=== PATIENT | male | born 1970 | race Caucasian/White ===

== ENCOUNTER → 2021-09-19 14:23 | Outpatient (BNVA) | payer OTHER, SELFPAY | PROVIDERS: PCP Internal Medicine Medical Oncology; Visit Provider Physician Assistant | DX: M65.331 Trigger finger, right middle finger (principal); M77.12 Lateral epicondylitis, left elbow | CPT/HCPCS: 20551; J1020 ==

== ENCOUNTER 2021-10-28 11:01 | Day surgery (SDC) | payer OTHER, SELFPAY ==
--- NOTE | 2021-10-28 11:37 | W.PM.OPN ---
Operative Note Operative Note Date of Service: 10/28/21 Narrative: Operative Note Preop diagnosis: 1. right middle finger Trigger finger Postop diagnosis: 1. right middle finger Trigger finger Procedure: 1. right middle finger A1 ariela release Surgeon: Abigail Lerma MD Anesthesia: local block using 1% lidocaine with epinephrine Findings: No locking or catching after A1 ariela release EBL: Less than 5 mL Tourniquet time: None Specimens: None Complications: None Disposition: Brought to recovery room in stable condition Plan: Follow-up for 10-14 days for wound check and suture removal Indications: The patient is 51 years old, with a right middle finger trigger finger that has been unresponsive to nonoperative management. The risks and benefits of operative treatment including but not limited to risk of damage to blood vessels, nerves, tendons, infection, persistent pain, persistent symptoms, recurrence or possible need for additional surgery were discussed with the patient and the patient wishes to proceed with surgery. Procedure: Once consent was obtained a local block was performed in the preop area using a combination of 1% lidocaine with epinephrine. The patient was then brought back to the operating suite and placed on the operative table in supine position. A tourniquet was applied to the proximal aspect of the right upper extremity and the limb was prepped and draped in a standard surgical fashion. Once assured that we had a good block, a 1.5 cm oblique incision was made centered over the A1 ariela of the right middle finger . The incision was made through the skin to the subcutaneous tissues using a #15 blade. Careful dissection was made down to the level of the A1 ariela using tenotomy scissors, with care being taken to protect the nearby neurovascular structures. A longitudinal incision was made in the A1 ariela 1st using a #15 blade, then using tenotomy scissors under direct visualization. The A1 ariela was noted to be thickened. Following our A1 ariela release, we no longer saw any locking or catching of the digit with flexion and extension. Once satisfied with our A1 ariela release the wound was copiously irrigated with normal saline and hemostasis was obtained with a brief period of local pressure. The skin edges were reapproximated with some 5.0 nylon suture material and a sterile dressing was applied. The patient appears to have tolerated the procedure well and with no complications. All digits were well vascularized at the conclusion of the case.
[2021-10-28 11:41] VITALS: BP 151/94; PULSE 67; RESP 16; TEMP 36.4; O2SAT 96; BMI 29.2
--- NOTE | 2021-10-28 12:54 | MHC.SHP ---
Pre-Procedural Eval Section A Date of Service: 10/28/21 The patient is an INPATIENT: No Changes since office visit: No Cold of Flu in the past 2 weeks, No New Medical Problems, No Changes in Medication and No Patient answered all questions The History & Physical has been completed within 30 days and I have reviewed it.: Yes Section B Chief Complaint: trigger finger release Allergies: Allergies Allergy/AdvReac Type Severity Reaction Status Date / Time No Known Allergies Allergy Verified 09/19/21 14:35 Plan I have reviewed the history and physical and performed a pertinent physical examination on my patient. No changes have occurred unless specified.
[2021-10-28 13:17] VITALS: BP 142/76; PULSE 64; RESP 17; TEMP 36.9; O2SAT 97
== END 2021-10-28 13:27 | disposition home or self-care (01) ==
PROVIDERS: Visit Provider Orthopaedic Surgery
PROC: (CPT 26055; principal; 2021-10-28 12:30)
DX: M65.331 Trigger finger, right middle finger (principal); M77.12 Lateral epicondylitis, left elbow; I10 Essential (primary) hypertension; Z79.899 Other long term (current) drug therapy
CPT/HCPCS: 26055

== ENCOUNTER 2022-04-17 09:38 | Outpatient (REF) | payer OTHER, SELFPAY ==
[2022-04-17 09:59] LABS: MANUAL DIFF FLAG NO
[2022-04-17 10:48] LABS: Basophils Percent Auto 0.5 % (0-2); Eosinophils Absolute Auto 0.1 X10*3/uL (0.0-0.4); Eosinophils Percent Auto 1.3 % (0-4); Hematocrit 45.1 % (42.0-52.0); Hemoglobin 14.7 g/dl (14.0-18.0); Imm Gran Abs Auto 0.01 X10*3/uL (0.00-0.03); Imm Gran Pct Auto 0.2 % (0.0-0.4); Lymphocytes Absolute Auto 2.1 X10*3/uL (1.2-4.9); Lymphocytes Percent Auto 34.8 % (20-40); Mean Corpuscular HGB Conc 32.6 g/dl (31.0-36.0); Mean Corpuscular Hemoglobin 28.3 pg (27.0-33.0); Mean Corpuscular Volume 86.9 fL (80.0-98.0); Mean Platelet Volume 9.5 fL (9.4-12.4); Monocytes Absolute Auto 0.6 X10*3/uL (0.1-1.2); Monocytes Percent Auto 10.1 % (2-11); Neutrophils Absolute Auto 3.3 x10*3/uL (2.0-8.3); Neutrophils Percent Auto 53.1 % (45-73); Platelet Count 279 X10*3/uL (160-400); Red Blood Count 5.19 X10*6/uL (4.60-5.80); Red Cell Distribution Width 12.8 % (11.0-16.0); White Blood Count 6.2 X10*3/uL (4.8-10.8)
[2022-04-17 11:31] LABS: Alanine Aminotransferase 17 U/L (0-40); Albumin Level 4.6 g/dL (3.5-5.0); Alkaline Phosphatase 60 U/L (39-117); Anion Gap 12 (12-20); Aspartate Amino Transferase 21 U/L (5-37); Bilirubin Total 1.1 mg/dL (0.0-1.0); Blood Urea Nitrogen 17 mg/dL (9-16); Calcium 9.4 mg/dL (8.4-10.2); Carbon Dioxide 26 mmol/L (22-29); Chloride 103 mmol/L (96-108); Cholesterol 293 mg/dL; Estimated Glomerular Filt Rate > 60; Glucose Random 94 mg/dL (60-115); HDL Cholesterol 54 mg/dL; LDL Cholesterol Calculated 224 mg/dl; Sodium 136 mmol/L (135-145); Total Protein 7.4 g/dL (6.5-8.0); Triglycerides 76 mg/dL
[2022-04-17 11:44] LABS: Prostate Specific Antigen 0.55 ng/mL (<0.05-4.0)
[2022-04-17 15:03] LABS: Adenovirus F 40/41 Not Detected (Not Detect.); Astrovirus Not Detected (Not Detect.); Campylobacter Not Detected (Not Detect.); Cryptosporidium Not Detected (Not Detect.); Cyclospora cayetanensis Not Detected (Not Detect.); E. coli EAEC Not Detected (Not Detect.); E. coli EPEC Not Detected (Not Detect.); E. coli ETEC Not Detected (Not Detect.); E. coli STEC Not Detected (Not Detect.); Entamoeba histolytica Not Detected (Not Detect.); Giardia lamblia Not Detected (Not Detect.); Norovirus GI/GII Not Detected (Not Detect.); Plesiomonas shigelloides Not Detected (Not Detect.); Rotavirus A Not Detected (Not Detect.); Salmonella Not Detected (Not Detect.); Sapovirus Not Detected (Not Detect.); Shigella sp./EIEC Not Detected (Not Detect.); Vibrio Not Detected (Not Detect.); Vibrio Cholerae Not Detected (Not Detect.); Yersinia enterocolitica Not Detected (Not Detect.)
== END 2022-04-17 09:39 | disposition home or self-care (01) ==
LOC: HO.LAB 09:38
PROVIDERS: PCP Internal Medicine Medical Oncology; Visit Provider Internal Medicine Medical Oncology
DX: Z12.5 Encounter for screening for malignant neoplasm of prostate (principal); E66.9 Obesity, unspecified; N40.0 Benign prostatic hyperplasia without lower urinary tract symptoms; R19.7 Diarrhea, unspecified
CPT/HCPCS: 36415; 80053; 80061; 84153; 85025; 87507

== ENCOUNTER 2022-04-24 12:04 | Outpatient (REF) | payer OTHER, SELFPAY ==
[2022-04-24 13:37] LABS: C Reactive Protein 0.22 mg/dL (< or = 0.50)
[2022-04-24 14:05] LABS: T4 Thyroxine 6.2 ug/dL (4.5-12.0)
[2022-04-24 14:08] LABS: Erythrocyte Sedimentation Rate 2 MM/HR (0-15)
[2022-04-25 13:50] LABS: CDiff Gene PCR NEGATIVE (Negative)
[2022-04-25 14:00] LABS: Leukocytes Stool Qualitative NEGATIVE (NEGATIVE)
[2022-04-28 14:32] LABS: Immunoglobulin A 253 mg/dL (47-310)
[2022-04-29 08:16] LABS: Gliadin Deamidated IgA Ab 1.1 U/mL; Gliadin Deamidated IgG Ab <1.0 U/mL
[2022-04-30 13:36] LABS: Transglutaminase Ab IgG <1.0 U/mL; Transglutaminase IgA <1.0 U/mL
[2022-05-06 16:27] LABS: Endomysial IgA Antibody Negative (Negative)
== END 2022-04-24 12:05 | disposition home or self-care (01) ==
LOC: HO.LAB 12:04
PROVIDERS: PCP Internal Medicine Medical Oncology; Visit Provider Internal Medicine
DX: R19.7 Diarrhea, unspecified (principal)
CPT/HCPCS: 36415; 82784; 84436; 84443; 85652; 86140; 86231; 86258; 86364; 87493; 89055

== ENCOUNTER 2022-05-05 12:28 | Day surgery (SDC) | payer OTHER, SELFPAY ==
[2022-05-05 12:35] VITALS: BMI 28.2
[2022-05-05 12:48] VITALS: BP 161/70; PULSE 66; RESP 16; TEMP 36.3; O2SAT 97
--- NOTE | 2022-05-05 13:46 | HO.ANESPROP2 ---
[facility] Active Problems Active Problems: All Active Problems (Updated 09/21/21 @ 18:54 by Joel Gamble PA-C) Trigger middle finger of right hand (Acute) Left lateral epicondylitis (Acute) Past Medical History Medical History HTN (hypertension) Family History Family history of problems with anesthesia: No Surgical History Surgical History (Updated 05/05/22 @ 12:38 by Caty Huang RN) History of colonoscopy History of vasectomy History of Problems with Anesthesia: No Social History Social History (Updated 09/19/21 @ 14:36 by SPRING Moffett) Patient Tobacco Use Status: Never used Tobacco Second Hand Smoke Exposure: No Use of substances other than those prescribed or required for medical reasons: Yes Substance Use Frequency: Occasionally Are you DNR?: No Advance Directives: No Advance Directives Information Provided: Yes Advance Directives on File: No Current occupational status: employed 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 Meds Allergies Allergy/AdvReac Type Severity Reaction Status Date / Time No Known Allergies Allergy Verified 09/19/21 14:35 Active Medications: Current Medications Sodium Biphosphate/Sodium Phosphate (Sodium Phosphate,[place]-Dibasic 133 Ml Enema) 133 ml AR ONCE PRN PRN Reason: Poor Colonoscopy Prep Results Home Medications Medication Instructions Recorded Confirmed Last Taken Type metoprolol tartrate 25 mg tablet 12.5 mg PO BID 09/19/21 Unknown History Exam Exam Date and Time: May 05, 2022 1346 Height,Weight and Vital Signs: Height 5 ft 6 in Weight 79.379 kg Last Vital Signs Temp 97.4 F 05/05/22 12:48 Pulse 66 05/05/22 12:48 Resp 16 05/05/22 12:48 BP 161/70 H 05/05/22 12:48 Pulse Ox 97 05/05/22 12:48 O2 Del Method 05/05/22 12:48 Airway Mallampati Class: I TM Dist: >3cm Neck ROM: Full Loose/Missing/Broken Teeth: No Heart: rrr Lungs: clear Assessment and Plan Final Anesthetic Review Family History of Problems with Anesthesia: No History of Problems with Anesthesia: No NPO: Yes ASA Class: II Final Preanesthetic Review: No Changes in Pt Med Stat, Meds/Allgs Chart Reviewed, Consent Obtained/Reviewed and Anes Risks/Benef Reviewed Patient Risk: Low Procedure Risk: Low Anesthetic Plan Anesthetic Plan: MAC: Disposition: Standard PACU
[2022-05-05 14:55] VITALS: BP 106/68; PULSE 62; RESP 16; TEMP 36.2; O2SAT 98
--- NOTE | 2022-05-05 15:02 | PM.OP ---
Brief Operative Note Date of Service: 05/05/22 Pre-op diagnosis: Diarrhea, change in bowel habits Post-op diagnosis: other (R/O Microscopic colitis) Procedure: Colonoscopy to the cecum and TI with biopsies Surgeon: Brian Beck Anesthesia: MAC Was an Earth Science Professor used for this Procedure?: No Estimated blood loss (mL): 2.0 Pathology: other (A. Terminal ileum B. Ascending colon C. Descending colon) Condition: stable Disposition: PACU
[2022-05-05 15:10] VITALS: BP 139/74; PULSE 60; RESP 16; TEMP 36.4; O2SAT 99
--- NOTE | 2022-05-06 00:42 | OP_ITS ---
SURGEON: Brian Beck MD INDICATIONS: The patient presents for evaluation of change in bowel habits with associated diarrhea. Full consent has been obtained from him for this, including risks of bleeding and perforation. PREOPERATIVE DIAGNOSIS: Change in bowel habits and diarrhea. POSTOPERATIVE DIAGNOSIS: PROCEDURE PERFORMED: Colonoscopy to the cecum and terminal ileum with biopsies. ESTIMATED BLOOD LOSS: COMPLICATIONS: ANESTHESIA: Monitored anesthesia care. ASSISTANTS: SPECIMENS: POSTOPERATIVE DIAGNOSES: Change in bowel habits and diarrhea, rule out microscopic colitis, mild diverticulosis, small internal hemorrhoids. DESCRIPTION OF PROCEDURE: The patient was placed in the left lateral decubitus position. The digital rectal exam revealed no abnormalities. The Lotaris video pediatric colonoscope was entered into the rectum and advanced easily to the cecum. Once in the cecum, I did identify a normal-appearing cecal pouch with appendiceal orifice and a normal-appearing ileocecal valve. The terminal ileum was cannulated for least 5 to 10 cm and appeared normal, without any sign of Crohn disease. Biopsies were obtained. The scope was withdrawn back in the colon. The entire cecum and ileocecal valve appeared normal. The scope was slowly withdrawn assessing all mucosal surfaces carefully. Preparation was excellent. I did not visualize any sign of colitis, polyps, nor angiodysplasia. There were some mild areas of edema throughout the colon but no oren evidence of colitis. Biopsies were obtained in the ascending and descending colon. There was a mild amount of sigmoid diverticulosis. In the rectum, the scope was retroflexed visualizing internal hemorrhoids, but no other pathology. The rectal mucosa appeared normal. Scope was straightened and withdrawn from the patient. He tolerated the procedure well and was returned to the recovery area in stable condition. IMPRESSION: 1. Rule out microscopic colitis. 2. Mild diverticulosis. 3. Small internal hemorrhoids. PLAN: The results of the biopsies will be checked. I have instructed him to use Imodium throughout the day as needed to see if that give him some relief in regard to the diarrhea. All recent stool specimens have been negative including C difficile. Laboratories including thyroid studies, sedimentation rate, C-reactive protein, and celiac disease laboratories have been negative as well. If the symptoms persist, then we may want to obtain a CT scan of the abdomen to assess the pancreas, although based on the history, I do not think this is anything such as pancreatic insufficiency. We may want to try him on other symptomatic treatment such as cholestyramine. He will be seen in followup in the office. This has been discussed with his . MD MONICA Green/VINCENT / [phone]
== END 2022-05-05 15:34 | disposition home or self-care (01) ==
PROVIDERS: PCP Internal Medicine Medical Oncology; Visit Provider Internal Medicine
PROC: 0DJD8ZZ Inspection of Lower Intestinal Tract, Via Natural or Artificial Opening Endoscopic (ICD-10-PCS; CPT 45378; principal; 2022-05-05 14:00)
DX: R19.4 Change in bowel habit (principal); R19.7 Diarrhea, unspecified; K52.832 Lymphocytic colitis; K57.30 Diverticulosis of large intestine without perforation or abscess without bleeding; K64.8 Other hemorrhoids; I10 Essential (primary) hypertension; Z98.52 Vasectomy status; Z79.899 Other long term (current) drug therapy
CPT/HCPCS: 45380; 88305

== ENCOUNTER 2022-06-23 06:20 | Outpatient (REF) | payer OTHER, SELFPAY ==
[2022-06-23 08:04] LABS: Cholesterol 222 mg/dL; HDL Cholesterol 57 mg/dL; LDL Cholesterol Calculated 138 mg/dl; Triglycerides 135 mg/dL
== END 2022-06-23 06:21 | disposition home or self-care (01) ==
LOC: HO.LAB 06:20
PROVIDERS: PCP Internal Medicine Medical Oncology; Visit Provider Internal Medicine Medical Oncology
DX: E66.3 Overweight (principal)
CPT/HCPCS: 36415; 80061

== ENCOUNTER 2025-01-30 07:23 | Outpatient (REF) | payer BC, SELFPAY ==
--- OUTSIDE RECORDS SUMMARY | 2025-01-30 07:27 | XMS_ITS | Patient Health Record ---
Author Organization [facility] Address [address] [place] [address] Care Team Providers Care Embedded Developer Name Role Phone Rich Barbosa MD Primary Care Provider Unavailab Rich Lord Unavailable [phone] Allergies No Known Allergies Reason For Referral Referring Provider First Name Rcih Referring Provider Last Name Familia Referring Provider Speciality Oncology Referred Organization [facility] Referred Provider Rich Beck Referred Address [address],[place], [place],[address],[place] Referred Provider Specialty Gastroentero logy General Notes Kenia Rosales 024 09:29:23 AM EDT > requested o blue referral from Dr. Barbosa's office for visit with Ebony Mercado on 08-09-2024 Referral Priority Routine Medications Medication SIG (Take, Route, Frequency, Duration) Notes Start Date End Date Status Vitamin C Gummie 120 MG as directed Orally Active Calcium + D 500-1000-40 MG-UNT-MCG as directed Orally Active Budesonide 3 MG TAKE 3 CAPSULES BY M OUTH EVERY DAY for 30 Not-Taking Metoprolol Succinate ER 50 MG 1 tablet Oral Once a day Act kelsie immodium 1 tab Oral for 14 days prn Active Budesonide 3 MG 3 capsules Orally On ce a day for 6 weeks and then check with MD regarding tapering instructions for 30 days prn 05/21/2023 Active Immunizations Vaccine Route Administration Date Status Comme nts Influenza Unknown 03/03/2019 Refused Influenza Unknown 07/31/2022 Refused Influenza Unknown 12/03/2022 Refused Social History Tobacco Use: Social History Observation Description Date Details (start date - stop date) Former Smoker NA - NA Tobacco Use/Smoking Question Answer Notes Patient is a former smoker How long has it been since you last smoked? > 10 years Alcohol Screen Question Answer Notes Did you have a drink contain ing alcohol in the past year? Yes How often did you have a dri nk containing alcohol in the past year? 2 to 3 times a week (3 points) How many drinks did you have on a typical day when you were drinking in the past year? 1 or 2 drinks (0 point) How often did you have 6 or more drinks on one occasion in the past year? Never (0 point) Points 3 Interpretation Negative Section Notes: Nonsmoker; 6 beers per week Nonsmoker; 6 beers per week Nonsmoker; 6 beers per week Nonsmoker; 6 beers per week Nonsmoker; 6 beers per week Nonsmoker; 6 beers per week Nonsmoker; 6 beers per week Problems Problem Type SNOMED Code ICD Code Onset Dates Problem Status W/U Status Risk Notes Problem Screening for malignant neoplasm of colon done (017220631864387) Encounter for screening for malignant neoplasm of colon (Z12.11) Active confirmed Problem Diarrhea (86778245) Diarrhea (R19.7) Active confirmed Problem History of polyp of colon (situation) (739974265) Personal history of colonic polyps (Z86.010) Active confirmed Problem Preprocedural examination done (417529852841261) Preprocedural examination (Z01.818) Active confirmed Problem Lymphocytic colitis (0335100047) Lymphocytic colitis (K52.89) Active confirmed Problem Diverticulosis of colon (694127186) Diverticulosis of colon (K57.30) Active confirmed Vital Signs Blood pressure diastolic 00 mm Hg 08/09/2024 Height 66 in 08/09/2024 Blood pressure systolic 00 mm Hg 08/09/2024 Weight 186 lbs 08/09/2024 BMI 30.02 kg/m2 08/09/2024 Encounters Encounter Location Date Provider Diagnosis [facility] [address] [place] [phone] 08/09/2024 Rich Beck Lymphocytic colitis K52.89 ; Encounter for screening for malignant neoplasm of colon Z12.11 and Personal history of colonic polyps Z86.010 [facility] [address] [place] [address] 06/27/2024 Rich Beck Assessments Encounter Date Diagnosis (ICD Code) Assessment Notes Treatment Notes Treatment Clinical Notes Section Notes 08/09/2024 Encounter for screening for malignant neoplasm of colon (ICD-10 - Z12.11) Overall, Rich appears quite well. His lymphocytic colitis has remained in clinical remission off the budesonide for at least 2 months now. As such, I don't think is worthwhile to start him on a low-dose of budesonide or a mesalamine agent at this time. As such, we will continue to observe things and hopefully his remain in remission off of the medication. We did review that we could try a mesalamine agent to try to keep things in remission but that would not be a guarantee anyway. As such, he is quite content to simply observe things rather than have to take a chronic medication. I will send him a prescription to be able to warehouse picker some budesonide to have handy in the event he does have a flareup. I advised him that at that point he will start 9 mg daily but he will need to call me right away to let me know that he is going back on the medication so I can instruct him as to how to taper it. However, if things otherwise remained well I will plan to see him in one year for a followup visit. We did review that he will be due for a followup colonoscopy for screening in 2026 In regard to his previous history of colon polyps. I did advise him to definitely call me prior to the next year's visit if he has any problems or questions I can be of assistance with. Rich was comfortable with this plan. Thank you again for allowing me to participate in Rich's care. I shall continue to keep you advised of his progress. 08/09/2024 Lymphocytic colitis (ICD-10 - K52.89) Overall, Rich appears quite well. His lymphocytic colitis has remained in clinical remission off the budesonide for at least 2 months now. As such, I don't think is worthwhile to start him on a low-dose of budesonide or a mesalamine agent at this time. As such, we will continue to observe things and hopefully his remain in remission off of the medication. We did review that we could try a mesalamine agent to try to keep things in remission but that would not be a guarantee anyway. As such, he is quite content to simply observe things rather than have to take a chronic medication. I will send him a prescription to be able to warehouse picker some budesonide to have handy in the event he does have a flareup. I advised him that at that point he will start 9 mg daily but he will need to call me right away to let me know that he is going back on the medication so I can instruct him as to how to taper it. However, if things otherwise remained well I will plan to see him in one year for a followup visit. We did review that he will be due for a followup colonoscopy for screening in 2026 In regard to his previous history of colon polyps. I did advise him to definitely call me prior to the next year's visit if he has any problems or questions I can be of assistance with. Rich was comfortable with this plan. Thank you again for allowing me to participate in Rich's care. I shall continue to keep you advised of his progress. 08/09/2024 Personal history of colonic polyps (ICD-10 - Z86.010) Overall, Rich appears quite well. His lymphocytic colitis has remained in clinical remission off the budesonide for at least 2 months now. As such, I don't think is worthwhile to start him on a low-dose of budesonide or a mesalamine agent at this time. As such, we will continue to observe things and hopefully his remain in remission off of the medication. We did review that we could try a mesalamine agent to try to keep things in remission but that would not be a guarantee anyway. As such, he is quite content to simply observe things rather than have to take a chronic medication. I will send him a prescription to be able to warehouse picker some budesonide to have handy in the event he does have a flareup. I advised him that at that point he will start 9 mg daily but he will need to call me right away to let me know that he is going back on the medication so I can instruct him as to how to taper it. However, if things otherwise remained well I will plan to see him in one year for a followup visit. We did review that he will be due for a followup colonoscopy for screening in 2026 In regard to his previous history of colon polyps. I did advise him to definitely call me prior to the next year's visit if he has any problems or questions I can be of assistance with. Rich was comfortable with this plan. Thank you again for allowing me to participate in Rich's care. I shall continue to keep you advised of his progress. Plan Of Treatment Pending Test Test Name Order Date TSH (THYROID STIMULATING HORMONE) 2021 CRP 04/24/2022 SED RATE (ESR) 04/24/2022 CELIAC PANEL #10 04/24/2022 STOOL WBC 04/24/2022 C DIFFICILE RFLX PCR 04/24/2022 T4 Thyroxine 04/24/2022 Future Test Test Name Order Date COLONOSCOPY 03/03/2019 COLONOSCOPY 04/24/2022 Next Appt Details Provider Name:Rich Beck , 08/23/2025 04:20:00 PM, [address] [place] [address], [address], [place], [address], Insurance Providers Payer Name Payer Address Payer Phone Subscriber Number Group Number Insured Name Patient Relationship to Insured Coverage Start Date Coverage End Date O [employer]UE [employer] [address] [place] [address] [id number] RICH BENSON Self - patient is the insured Medical (General) History Medical History History ICD Code Denies CA,DM,CVA,Lung disease,renal dise ase Hypertension Screening colonoscopy in Mar revealed a tubulovillous adenoma removed in the cecum and a small tubular adenoma removed from the ascending colon. Colonoscopy in April 2 was done for evaluation of diarrhea. This revealed a grossly normal colon and terminal ileum, but biopsies from the colon were consistent with a lymphocytic colitis. The terminal ileum biopsies were normal. He responded well to a regimen of budesonide and a small amount of Imodium at that time. Surgical History Surgery Date(Month/Year) Vasectomy
--- OUTSIDE RECORDS SUMMARY | 2025-01-30 07:27 | XMS_ITS ---
Author Organization Brian Barbosa III, MD Address [address] [place] [address] Care Team Providers Care Primary Substance Abuse Counselor Name Role Phone Brian Barbosa Primary Care Provider REASON FOR VISIT preop Social History Sex Assigned At : Social History Observation Description Sex Assigned At Male Encounters Encounter Location Date Provider Diagnosis Brian Barbosa III, MD [address] [place] [address] [place] [address] 01/03/2025 Brian Barbosa Plan Of Treatment Next Appt Details Provider Name:Brian Barbosa, 08/09/2025 04:00:00 PM, [address] [place] [address] [place], [address], Provider Name:Brian Barbosa, 12/29/2025 03:30:00 PM, [address] [place] [address] [place], [address], Progress Notes * Brian MURPHYDOB:1970 ( 55 yo M)Acc No.[id number]:01/03/2025 Patient:?Brian MURPHY Provider:?Brian Barbosa MD :1970???Age:54 Y???Sex:Male Andrade e:01/03/2025 [facility] Subjective: * Chief Complaints: * ???1. Preop. * Medical History:? Objective: * Vitals:? Assessment: Plan: * Treatment: * Images: * The named appointment provid er may or may not be the originator of this progress note, and it is not deemed complete until electronically signed by the appointment provider. Sign off status: Pending * Provider:?Brian Barbosa MD Date:?12/20 Generated for Gladys perez/Michael/Farhatitting on:?01/30/2025 07:27 AM EDT
--- OUTSIDE RECORDS SUMMARY | 2025-01-30 07:28 | XMS_ITS ---
Author Organization [facility] Address [address] [place] [address] Care Team Providers Care Night Custodian Name Role Phone Rich Barbosa MD Primary Care Provider UnavailRich Hernandez Unavailable [phone] Allergies No Known Allergies REASON FOR VISIT Patient presents today for colitis Medications Medication SIG (Take, Route, Frequency, Duration) Notes Start Date End Date Status Budesonide 3 MG 3 Orally Once every other day as of the 01/13/2024 OV 05/21/2023 Active Metoprolol Succinate ER 50 MG 1 tablet Oral Once a day Act kelsie Budesonide 3 MG TAKE 3 CAPSULES BY M OUTH EVERY DAY for 30 Not-Taking immodium 1 tab Oral for 14 days Active Vitamin C Gummie 120 MG as directed Orally Active Prevagen 10 MG as directed Orally Active Social History Tobacco Use: Social History [...] Section Notes: Nonsmoker; 6 beers per week Vital Signs Temperature 98.0 degrees Fahrenheit 01/13/20 Blood pressure systolic 000 mm Hg 01/13/20 Blood pressure diastolic 00 mm Hg 024 Height 66 in 01/13/2024 Weight 182 lb 2 oz lbs 01/13/2024 BMI 29.39 kg/m2 01/13/2024 Encounters Encounter Location Date Provider Diagnosis [facility] [address] [place] [address] 01/13/2024 Rich Beck Lymphocytic colitis K52.89 Assessments Encounter Date Diagnosis (ICD Code) Assessment Notes Treatment Notes Treatment Clinical Notes Section Notes 01/13/2024 Lymphocytic colitis (ICD-10 - K52.89) Decrease the Budesonide to every 3rd day Overall, Rich appears quite well. His lymphocytic colitis remains in clinical remission on his current regimen of the budesonide 3 mg every other day. He is not requiring any antidiarrheal medicine at this time. At this point I recommended that he decrease the budesonide to 3 mg every third day. I advised him to hold off on stopping the budesonide completely given his flareup of the colitis fairly promptly last summer when he stopped the budesonide completely. At some point we might want to put him on a trial of a mesalamine agent to see if that would help keep his lymphocytic colitis in remission as the budesonide is eventually completely stopped. If things remains stable I will plan to see Rich in the Fall for followup office visit. I advised to definitely contact me prior to that if he has any problems or questions I can be of assistance with. Rich was comfortable with this plan. Thank you again for allowing me to participate in Rich's care. I shall continue to keep you advised of his progress. Plan Of Treatment Treatment Notes Assessment Notes Lymphocytic colitis Decrease the Budeson larry to every 3rd day Next Appt Details Follow Up: 6 Months, Reason: Provider Name:Rich Beck , 08/23/2025 04:20:00 PM, [address], [address], [place], [address], Progress Notes * RICH BENSONDOB:1970 ( 54 yo M)Acc No.[id number]:01/13/2024 Progress Notes Patient:?RICH BENSON Provider:?Rich Beck MD :1970???Age:53 Y???Sex:Male Andrade e:01/13/2024 [facility] Pcp:Rich Barbosa MD Subjective: * Chief Complaints: * ???Patient presents today fo r colitis * HPI: ???incontinence:? I saw Rich in the office today for evaluation of his underlying lymphocytic colitis. Since I last last saw Rich in June 2023 he has been feeling well. He was able to taper the budesonide down to his current regimen of 3 mg every other day since I saw him last June. His bowel movements have remained very stable and regular on this regimen. He has not had any significant diarrhea, hematochezia, nor melena. He has not required any Imodium. He enjoys a good appetite, without any significant heartburn or dysphagia. He denies abdominal pain, jaundice, nor weight loss. He does remain on his supplements including vitamin D and calcium. * ROS:?General/Constitutional:?Change in appetite?denies.?Chills?denies.?Fatigue?denies.?Ophthalmologic:?Comments?all negative.?ENT:?Comments?all negative.?Respiratory:?hemoptysis?denies.?Cough?denies.?Cardiovascular:?Chest pain?denies.?Orthopnea?denies.?Gastrointestinal:?Comments?See HPI for details.?Genitourinary:?Hematuria?denies.?Dysuria?denies.?Musculoskeletal:?Painful joints?denies.?Weakness?denies.?Skin:?Itching?denies.?Rash?denies.?Neurologic:?Headache?denies.?Seizures?denies.?Psychiatric:?Comments?all negative.? * Medical History:? * Surgical History:?Vasectomy * Hospitalization/Major Diagno stic Procedure:?No Hospitalization History. * Family History:?Father: dece ased, Some type of intraabdominal cancer.?Mother: , stroke, diagnosed with HTN (hypertension), Diabetes.? No known colorectal cancer. No liver cancer in family history. * Social History:?Tobacco Use:?Tobacco Use/Smoking?Patient is a?former smoker,?How long has it been since you last smoked??> 10 years.?Drugs/Alcohol:?Alcohol Screen?Did you have a drink containing alcohol in the past year??Yes,?How often did you have a drink containing alcohol in the past year??2 to 3 times a week (3 points),?How many drinks did you have on a typical day when you were drinking in the past year??1 or 2 drinks (0 point),?How often did you have 6 or more drinks on one occasion in the past year??Never (0 point),?Points?3,?Interpretation?Negative.?Miscellaneous:?Marital status: . 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 ???Nonsmoker; 6 beers per week. * Medications:?TakingPrevagen 10 MG Capsule as directed Orally Vitamin C Gummie 120 MG Tablet Chewable as directed Orally immodium 1 tab Oral Metoprolol Succinate ER 50 MG Tablet Extended Release 24 Hour 1 tablet Oral Once a dayBudesonide 3 MG Capsule Delayed Release Particles 3 Orally Once every other day as of the 01/13/2024 OVTaking Prevagen 10 MG Capsule as directed Orally Taking Vitamin C Gummie 120 MG Tablet Chewable as directed Orally Taking immodium 1 tab Oral Taking Metoprolol Succinate ER 50 MG Tablet Extended Release 24 Hour 1 tablet Oral Once a dayTaking Budesonide 3 MG Capsule Delayed Release Particles 3 Orally Once every other day as of the 01/13/2024 OVNot-Taking/PRNBudesonide 3 MG Capsule Delayed Release Particles TAKE 3 CAPSULES BY MOUTH EVERY DAY Medication List reviewed and reconciled with the patientNot-Taking/PRN Budesonide 3 MG Capsule Delayed Release Particles TAKE 3 CAPSULES BY MOUTH EVERY DAY Medication List reviewed and reconciled with the patient * Allergies:?N.K.D.A.yes[Aller gies Verified] Objective: * Vitals:?Wt: 182 lb 2 oz, Ht: 66 in, BMI:29.39 Index, BP: 000/00 mm Hg, Temp: 98.0. * Examination: ???General Examination: ?GENERAL APPEARANCE:?pleasant, well nourished, well developed, in no acute distress.?EYES:?sclera non-icteric.?ORAL CAVITY:?mucosa moist.?NECK/THYROID:?no cervical lymphadenopathy, neck supple.?SKIN:?nonjaundiced, no spider angiomata.?HEART:?S1, S2 normal.?LUNGS:?clear to auscultation bilaterally.?ABDOMEN:?normal bowel sounds, no guarding or rigidity, no guarding or rigidity, no masses palpable, soft, nontender, nondistended.?EXTREMITIES:?no edema.?NEUROLOGIC:?alert and oriented.? Assessment: * Assessment: 1.?Lymphocytic colitis - K52 .89 (Primary)? Overall, Rich appears quit e well. His lymphocytic colitis remains in clinical remission on his current regimen of the budesonide 3 mg every other day. He is not requiring any antidiarrheal medicine at this time. At this point I recommended that he decrease the budesonide to 3 mg every third day. I advised him to hold off on stopping the budesonide completely given his flareup of the colitis fairly promptly last summer when he stopped the budesonide completely. At some point we might want to put him on a trial of a mesalamine agent to see if that would help keep his lymphocytic colitis in remission as the budesonide is eventually completely stopped. If things remains stable I will plan to see Rich in the Fall for followup office visit. I advised to definitely contact me prior to that if he has any problems or questions I can be of assistance with. Rich was comfortable with this plan. Thank you again for allowing me to participate in Rich's care. I shall continue to keep you advised of his progress. Plan: * Treatment: * Procedure Codes:?3017F COLOR ECTAL CA SCREEN DOC [id number] TOBACCO NON-RUNVJ2013 BP SCR NOT PRFRM REC REASON NOS * Preventive Medicine:? ??Counseling:?Care goal follow-up plan:?Above Normal BMI Follow-up?Giving encouragement to exercise,?BMI management provided?Yes.? * Follow Up:?6 Months * * Sign off status: Completed true * Provider:?Rich Beck MD Date:? 024 Generated for Lai chris/Michael/eTransmitting on:?01/30/2025 07:27 AM EDT History and Physical Notes * HPI (History of Present Illness) Category Sub-Category Detail Notes Category Not es incontinence I saw Rich in the office today for evaluation of his underlying lymphocytic colitis. Since I last last saw Rich in June 2023 he has been feeling well. He was able to taper the budesonide down to his current regimen of 3 mg every other day since I saw him last June. His bowel movements have remained very stable and regular on this regimen. He has not had any significant diarrhea, hematochezia, nor melena. He has not required any Imodium. He enjoys a good appetite, without any significant heartburn or dysphagia. He denies abdominal pain, jaundice, nor weight loss. He does remain on his supplements including vitamin D and calcium. Examination Category Sub-Category Detail Notes Category Not es General Examination GENERAL APPEARANCE: pleasant , well nourished, well developed, in no acute distress HEAD: EYES: sclera non-icteric EARS: NOSE: THROAT: NECK/THYROID: no cervical lymphade nopathy, neck supple HEART: S1, S2 normal CHEST: LUNGS: clear to auscultatio n bilaterally ABDOMEN: normal bowel sounds, no guarding or rigidity, no guarding or rigidity, no masses palpable, soft, nontender, nondistended NEUROLOGIC: alert and oriented SKIN: nonjaundiced, no spi lyn angiomata EXTREMITIES: no edema PERIPHERAL PULSES: BACK: BREASTS: MUSCULOSKELETAL: MALE GENITOURINARY: LYMPH NODES: RECTAL EXAM: FEMALE GENITOURINARY: ORAL CAVITY: mucosa moist
--- OUTSIDE RECORDS SUMMARY | 2025-01-30 07:28 | XMS_ITS ---
Author Organization [facility] Address [address] [place] [address] Care Team Providers Care Application Release Manager Name Role Phone Rich Barbosa MD Primary Care Provider Unavailab Rich Lord Unavailable [phone] REASON FOR VISIT Please update insurance Encounters Encounter Location Date Provider Diagnosis [facility] [address] [place] [address] 06/27/2024 Rich Beck Plan Of Treatment Next Appt Details Provider Name:Rich Beck , 08/23/2025 04:20:00 PM, [address], [address], [place], [address], Progress Notes * RICH BENSONDOB:1970 ( 54 yo M)Acc No.[id number]:06/27/2024 Patient:?RICH BENSON :1970???Age:54 Y???Sex:Male Address:[address] [place] [address], [address] * true * Date:? Generated for Printi ng/Farong/eTransmitting on:?01/30/2025 07:27 AM EDT
--- OUTSIDE RECORDS SUMMARY | 2025-01-30 07:28 | XMS_ITS ---
Author Organization [facility] Address [address] [place] [id number] Care Team Providers Care Twisting Frame Fixer Name Role Phone Rich Barbosa MD Primary Care Provider UnavailRich Hernandez Unavailable [phone] Allergies No Known Allergies REASON FOR VISIT Patient presents today for colitis Medications Medication SIG (Take, Route, Frequency, Duration) Notes Start Date End Date Status Vitamin C Gummie 120 MG as directed Orally Active Budesonide 3 MG [...] instructions for 30 days prn 05/21/2023 Active Calcium + D 500-1000-40 MG-UNT-MCG as directed Orally Active Social History Tobacco [...] Section Notes: Nonsmoker; 6 beers per week Problems Problem Type SNOMED Code ICD Code Onset Dates Problem Status W/U Status Risk Notes Problem History of polyp of colon (situation) (098124313) Personal history of colonic polyps (Z86.010) Active confirmed Vital Signs Blood pressure systolic 00 mm Hg 08/09/20 24 Blood pressure diastolic 00 mm Hg 024 Height 66 in 08/09/2024 Weight 186 lbs 08/09/2024 BMI 30.02 kg/m2 08/09/2024 Encounters Encounter Location Date Provider Diagnosis [facility] [address] [place] [address] 08/09/2024 Rich Beck Lymphocytic colitis K52.89 ; Encounter for screening for malignant neoplasm of colon Z12.11 and Personal history of colonic polyps Z86.010 Assessments Encounter Date Diagnosis (ICD Code) Assessment Notes Treatment Notes Treatment Clinical Notes Section Notes 08/09/2024 Lymphocytic colitis (ICD-10 - K52.89) Overall, [...] him a prescription to be able to pick up attendant some budesonide to have handy in the [...] keep you advised of his progress. 08/09/2024 Encounter for screening for malignant neoplasm [...] him a prescription to be able to pick up attendant some budesonide to have handy in the [...] him a prescription to be able to pick up attendant some budesonide to have handy in the [...] advised of his progress. Plan Of Treatment Medication Medication Name Sig Start Date Stop Date Notes Budesonide 3 MG 3 capsules Orally On ce a day for 6 weeks and then check with MD regarding tapering instructions for 30 days 05/21/2023 prn Next Appt Details Follow Up: 1 Year, Reason: Provider Name:Rich Vergara Beck , 08/23/2025 04:20:00 PM, [address] [place] [address], [address], [phone], Progress Notes * RICH BENSONDOB:1970 ( 54 yo M)Acc No.[id number]:08/09/2024 Progress Notes Patient:?KELLEY RICH Provider:?Rich Beck MD :1970???Age:54 Y???Sex:Male Andrade e:08/09/2024 Address:[address] [place], [place] [id number] Pcp:Rich Barbosa MD Subjective: * Chief Complaints: * ???Patient presents today fo r colitis * HPI: ???incontinence:? I saw Rich in followup today in regard to his underlying history of lymphocytic colitis. ?I last saw Rich in December. At that time he was on 3 mg budesonide every other day and doing well. The plan had been to go to every third day until he saw me again in followup. He did that for a while but ultimately ran out of it about 2 months ago and opted not to call for refills. He is therefore been completely off of it since approximately May. Fortunately, he has continued to do quite well. He does take a very occasional Imodium for loose stools, but in general his bowel movements have been quite regular and not problematic. He has not noticed any signs of bleeding. He enjoys a good appetite and denies any significant heartburn or dysphagia. He denies abdominal pain, jaundice, weight loss, nor any abdominal distention. He has been eating all foods without any dietary intolerance. He denies any rashes, red or swollen joints, or any eye problems. * ROS:?General/Constitutional:?Change in appetite?denies.?Chills?denies.?Fatigue?denies.?Ophthalmologic:?Comments?all negative.?ENT:?Comments?all negative.?Respiratory:?hemoptysis?denies.?Cough?denies.?Cardiovascular:?Chest pain?denies.?Orthopnea?denies.?Gastrointestinal:?Comments?See [...] past year??Never (0 point),?Points?3,?Interpretation?Negative.?Miscellaneous:?Marital status: . 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 ???Nonsmoker; 6 beers per week. * Medications:?TakingCalcium + D 500-1000-40 MG-UNT-MCG Tablet Chewable as directed Orally Vitamin C Gummie 120 MG Tablet Chewable as directed Orally immodium 1 tab Oral , Notes: prnMetoprolol Succinate ER 50 MG Tablet Extended Release 24 Hour 1 tablet Oral Once a dayBudesonide 3 MG Capsule Delayed Release Particles 3 Orally Once every other day as of the 01/13/2024 OV, Notes: prnTaking Calcium + D 500-1000-40 MG-UNT-MCG Tablet Chewable as directed Orally Taking Vitamin C Gummie 120 MG Tablet Chewable as directed Orally Taking immodium 1 tab Oral , Notes: prnTaking Metoprolol Succinate ER 50 MG Tablet Extended Release 24 Hour 1 tablet Oral Once a dayTaking Budesonide 3 MG Capsule Delayed Release Particles 3 Orally Once every other day as of the 01/13/2024 OV, Notes: prnNot-Taking/PRNBudesonide 3 MG Capsule Delayed Release Particles TAKE 3 CAPSULES BY MOUTH EVERY DAY Not-Taking/PRN Budesonide 3 MG Capsule Delayed Release Particles TAKE 3 CAPSULES BY MOUTH EVERY DAY DiscontinuedPrevagen 10 MG Capsule as directed Orally Medication List reviewed and reconciled with the patientDiscontinued Prevagen 10 MG Capsule as directed Orally Medication List reviewed and reconciled with the patient * Allergies:?N.K.D.A.yes[Aller gies Verified] Objective: * Vitals:?Wt: 186 lbs, Ht: 66 in, BMI:30.02 Index, BP: 00/00 mm Hg. * Examination: ???General Examination: ?GENERAL APPEARANCE:?pleasant, well nourished, well developed, in no acute distress.?EYES:?sclera non-icteric.?ORAL CAVITY:?mucosa moist.?NECK/THYROID:?no cervical lymphadenopathy, neck supple.?SKIN:?nonjaundiced, no spider angiomata.?HEART:?S1, S2 normal.?LUNGS:?clear to auscultation bilaterally.?ABDOMEN:?normal bowel sounds, no guarding or rigidity, no guarding or rigidity, no masses palpable, soft, nontender, nondistended.?EXTREMITIES:?no edema.?NEUROLOGIC:?alert and oriented.? Assessment: * Assessment: 1.?Lymphocytic colitis - K52 .89 (Primary)?2.?Encounter for screening for malignant neoplasm of colon - Z12.11?3.?Personal history of colonic polyps - Z86.010? Overall, Rich appears quit e well. His lymphocytic colitis has remained in [...] him a prescription to be able to pick up attendant some budesonide to have handy in the [...] Procedure Codes:?3017F COLOR ECTAL CA SCREEN DOC [id number] TOBACCO [id number] BP SCR NOT PRFRM REC REASON NOS * Preventive Medicine:? ??Counseling:?Care goal follow-up plan:?Above Normal BMI Follow-up?Giving encouragement to exercise,?BMI management provided?Yes.? * Follow Up:?1 Year * * Sign off status: Completed true * Provider:?Rich Beck MD Date:? 024 Generated for Gladys perez/Michael/Farhatitting on:?01/30/2025 07:28 AM EDT History and Physical Notes * HPI (History of Present Illness) Category Sub-Category Detail Notes Category Not es incontinence I saw Rich in followup today in regard to his underlying history of lymphocytic colitis. I last saw Rich in December. At that time he was on 3 mg budesonide every other day and doing well. The plan had been to go to every third day until he saw me again in followup. He did that for a while but ultimately ran out of it about 2 months ago and opted not to call for refills. He is therefore been completely off of it since approximately May. Fortunately, he has continued to do quite well. He does take a very occasional Imodium for loose stools, but in general his bowel movements have been quite regular and not problematic. He has not noticed any signs of bleeding. He enjoys a good appetite and denies any significant heartburn or dysphagia. He denies abdominal pain, jaundice, weight loss, nor any abdominal distention. He has been eating all foods without any dietary intolerance. He denies any rashes, red or swollen joints, or any eye problems. Examination Category Sub-Category Detail Notes Category Not [...]
--- OUTSIDE RECORDS SUMMARY | 2025-01-30 07:28 | XMS_ITS ---
Author Organization Brian Barbosa III, MD Address [address] [place] [address] [place] [address] Care Team Providers Care Director Of Institutional Sales Name Role Phone Brian Barbosa Primary Care Provider [phone] Allergies Allergen (clinical drug ingredient) Drug/Non Drug [...] Date Provider Diagnosis Brian Barbosa III, MD [address] [place] [address] [place] [address] 12/06/2024 Brian Barbosa Former smoker Z87.89 1 [...] Provider Name:Brian Barbosa, 08/09/2025 04:00:00 PM, [address] [facility] [address], [place], [address], Provider Name:Brian Barbosa, 12/29/2025 03:30:00 PM, [address] [facility] [address], [place], [address], Progress Notes * Brian MURPHYDOB:1970 ( 54 yo M)Acc No.[id number]:12/06/2024 Progress Notes Patient:?Brian MURPHY Provider:?Brian Barbosa MD :1970???Age:54 Y???Sex:Male Andrade e:12/06/2024 Address:[address] [place] [address] [id number] Subjective: * Chief Complaints: * ???HypertensionADHDObesityBe nign prostatic hypertrophy * HPI: ???COVID-19 Screening:?He returns to the office for further adjustment of his blood pressure.? He has a gym at home where he works out and has been consuming creatine.? He has? gained 5 pounds which she says is due to fluid retention from creatine.? His blood pressure today was 140/81.? He was continued on current medications without change.Has no new complaints.? He was cautioned about consuming too much creatine. ?Questions?Have you had any new onset fever, chills, cough, congestion, sore throat, shortness of breath, muscle aches??No * ROS:?General/Constitutional:?pain?Right shoulder, otherwise only normal aches and pains.?Chills?denies.?Fatigue?admits.?Fever?denies.?ENT:?Decreased hearing?denies.?Respiratory:?Cough?denies.?Cardiovascular:?Chest pain with exertion?denies.?Dyspnea on exertion?denies.?Shortness of breath?denies.?Gastrointestinal:?Constipation?denies.?Decreased appetite?denies.?Diarrhea?denies.?Heartburn?denies.?Nausea?denies.?Rectal bleeding?denies.?Vomiting?denies.?Hematology:?bruising?denies.?petechiae?denies.?Swollen glands?none have been noted.?Genitourinary:?Frequent urination?once a night.?Musculoskeletal:?Muscle aches?denies.?Painful joints?denies.?Sciatica?denies.?Weakness?denies.?Skin:?Itching?denies.?Rash?denies.?Skin lesion(s)?denies.?Neurologic:?Difficulty speaking?denies.?Dizziness?denies.?Headache?denies.?Low back pain?denies.?Psychiatric:?Depressed mood?denies.? * Medical History:? * Surgical History:?vasectomy 2003colonoscopy 2018Upcoming surgery scheduled for next thursday * Hospitalization/Major Diagno stic Procedure:?Denies Past Hospitalization * Family History:?Father: dece ased, Colon cancer, diagnosed with Cancer.?Mother: , Hypertension, type 2 diabetes, stroke, diagnosed with DM, HTN.?1 brother(s) . .? His brother has a history of malignant melanoma. 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 He has been to Ashely for 22 years and they have 2 children. He was born in [place], [place]. * Medications:?TakingMetoprolo l Succinate ER 50 MG Tablet Extended Release [...] reviewed and reconciled with the patient * Allergies:?No Known Drug All ergyno[Allergies Verified] Objective: * Vitals:?Ht: 66, Wt: 193, BMI :31.15, BP: 140/81, HR: 64, Temp: 98.4, Wt-k.54. * Examination: ???General Examination: ?GENERAL APPEARANCE:?pleasant, well nourished, well developed, in no acute distress, calm and relaxed, obese, man.?HEAD:?atraumatic, normocephalic.?EYES:?eomi, perrla, anicteric, conjugate.?EARS:?normal.?NOSE:?septum intact.?ORAL CAVITY:?normal, unremarkable.?NECK/THYROID:?no jugular venous distention, no carotid bruit, thyroid normal.?LYMPH NODES:?no enlarged lymph nodes,spleen normal.?SKIN:?no suspicious lesions, anicteric.?HEART:?no clicks, gallops, murmurs, or rubs, regular rhythm, S1, S2 normal, no s3, or vascular bruits.?LUNGS:?clear to auscultation .?BREASTS:??no masses palpable bilaterally.?ABDOMEN:?bowel sounds normal, no ascites, no organomegaly, no mass, centripital obesity.?RECTAL EXAM:?not examined.?MUSCULOSKELETAL:?extremities unremarkable, no clubbing, cyanosis or edema.?PERIPHERAL PULSES:?normal.?NEUROLOGIC:?alert and oriented, cranial nerves 2-12 grossly intact, deep tendon reflexes 2+ symmetrical, motor strength normal upper and lower extremities, sensory exam intact.?PSYCH:?alert, oriented.? Assessment: * Assessment: 1.?Essential hypertension - I10 (Primary)???Notes :His blood pressure is stable. I recommended weight loss and sodium restriction and no changes medication. He will continue aggressive sodium restriction and weight reduction. He may need more medication. He was given an appointment to return to the office in 21 days for reassessment of his hypertension and the medical regimen.???2.?Former smoker - Z87.891???Notes :He is highly motivated not to smoke. We discussed a plan to prevent relapse in times of stress and illness.???3.?History of attention deficit disorder - Z86.59???Notes :He has requested that I prescribe a medication for this problem. I told him that this was beyond my scope of training and referred him to mental health benefits through his insurance for evaluation and treatment.???4.?Obesity (BMI 30.0-34.9) - E66.9???Notes :He has lost several pounds. Height counseled him to continue until his body mass index is normal. I recommended weight loss at a rate of 1/2 pound per week through a diet restricted in fat calories sodium and concentrated sweets. I recommended regular exercise.??? Plan: * Treatment: 2.?Others? Continue Metoprolol Succinate ER Tablet Extended Release 24 Hour, 100 MG, 1 tablet, Orally, Once a day;?Continue Imodium A-D Tablet, 2 MG, 1 tablet as needed, Orally, Four times a day;?Continue Budesonide Capsule Delayed Release Particles, 3 MG, 2 capsules, Orally, Once a day.?? * Procedure Codes:? * Preventive Medicine:? ??Counseling:?Care goal follow-up plan:?Counseling for abnormal BMI given?Yes ?Above Normal BMI Follow-up?Dietary management education, guidance, and counseling, Dietary needs education, Exercise promotion: strength training, Exercise promotion: stretching, Feeding regime, Giving encouragement to exercise, Lifestyle education regarding diet, Nutrition / feeding management, Nutrition therapy, Prescribed activity/exercise education, Prescribed diet education, Prescribed dietary intake, Special diet education, Weight monitoring , Intervention, Order not done: Medical or Other reason not done ?Smoking/Tobacco Use?Patient counseled on the dangers of tobacco use and urged to quit.?12/06/2024 * Follow Up:?As Scheduled (Yola son: Annual Exam) * Images: * Sign off status: Completed true * Provider:?Brian Barbosa MD Date:?11/19 Generated for Gladys perez/Michael/eTransmitting on:?01/30/2025 07:27 AM EDT History and Physical [...]
--- OUTSIDE RECORDS SUMMARY | 2025-01-30 07:28 | XMS_ITS | Patient Health Record ---
Author Organization Brian Barbosa III, MD Address [address] [place] [address] Care Team Providers Care Linen Supervisor Name Role Phone Brian Barbosa Primary Care Provider [phone] Allergies Allergen (clinical drug ingredient) Drug/Non Drug [...] 0.2 - 1.3 BLD Negative Negative - Reason For Referral No Information Medications Medication SIG (Take, Route, Frequency, Duration) Notes Start Date End Date Status Metoprolol Succinate ER 100 MG 1 tablet Orally Once a day 11/29/2024 A ctive Imodium A-D 2 MG 1 tablet as needed O rally Four times a day Active Budesonide 3 MG 2 capsules Orally On a day Active Immunizations Vaccine Route Administration Date Status Comme [facility] LUXA Unknown 12/05/2020 Administered COVID PFIZER Unknown 12/26/2020 Administered Social History Tobacco Use: Social History Observation Description Date Details (start date - stop date) Former Smoker NA - NA Sex Assigned At : Social History Observation Description Sex Assigned At Male Tobacco Control (Standard) Question Answer Notes Tobacco use: Former smoker How long has it been since you last smoked? Grea ter than 10 years AUDIT-C (Standard) Question Answer Notes Did you have a drink containing alcohol in the p ast year? No Points 0 Interpretation Negative Problems Problem Type SNOMED Code ICD Code Onset Dates Problem Status W/U Status Risk Notes Problem 5286884 Former smoker (Z87.891) Active confirmed He is highly motivated not to smoke. We discussed a plan to prevent relapse in times of stress and illness. Problem 298768955 Overweight (E66.3) Active confirmed He has lost 10 pounds since his last visit. His vital signs are stable. I recommended continued weight loss. Into his body mass index is in the normal range through regular exercise and a diet restricted in fact calories and sodium. Problem 335277412082717 Obesity (BMI 30.0-34.9) (E66.9) Active confirmed His body mass index is 30. We have discussed diet and nutrition. We are made plans to lose weight at a rate of one half of a pound per week until the body mass index is in the normal range. Problem 498344787 Mixed hyperlipidemia (E78.2) Active confirmed I have ordered. Comprehensive blood work which will continue a fasting lipid profile. This will be reviewed when available. No changes were made in his regimen today. I recommended aggressive weight loss and a diet low in sodium calories and animal fat. Problem 32048299 Simple chronic bronchitis (J41.0) Active confirmed He will treat himself conservatively with cough suppressants and antipyretics and fluids. Problem BPH (benign prostatic hyperplasia) (N40.0) Active confirmed He has been rising from sleep once a night to urinate. We have discussed modifications in lifestyle that he could make to reduce nocturia. Problem 07480847 Essential hypertension (I10) Active confirmed His blood pressure is stable. I recommended weight loss and sodium restriction and no changes medication. He will continue aggressive sodium restriction and weight reduction. He may need more medication. He was given an appointment to return to the office in 21 days for reassessment of his hypertension and the medical regimen. Problem Diarrhea (58135598) Diarrhea (R19.7) Active confirmed His GI panel is negative and his blood work is unremarkable. He was referred to gastroenterology to rule out an inflammatory bowel disorder. Problem 30289138 Colitis (K52.9) Active confirmed The exact type of colitis is unavailable to me at this time except that it is microscopic. He has responded nicely to the medication given to him by the gastroenterologis t, which will be continued. Problem 169928770 History of attention deficit disorder (Z86.59) Active confirmed He has requeste d that I prescribe a medication for this problem. I told him that this was beyond my scope of training and referred him to mental health benefits through his insurance for evaluation and treatment. Vital Signs Heart Rate 62 /min 12/27/2024 Temperature 98.2 degrees Fahrenheit 12/27/2024 Blood pressure diastolic 70 mm Hg 12/27/2024 Height 66 in 12/27/2024 Blood pressure systolic 140 mm Hg 12/27/2024 Weight 190 lbs 12/27/2024 BMI 30.66 kg/m2 12/27/2024 Encounters Encounter Location Date Provider Diagnosis Brian Barbosa III, MD [address] [place] [address] [place] [address] 04/25/2024 Brian Barbosa Former smoker Z87.89 1 ; History of attention deficit disorder Z86.59 ; Overweight E66.3 ; BPH (benign prostatic hyperplasia) N40.0 ; Mixed hyperlipidemia E78.2 and Pterygium of both eyes H11.003 Brian Barbosa III, MD [address] [place] [address] [place] [address] 11/09/2024 Brian Barbosa Central pterygium of eye, bilateral H11.023 ; Former smoker Z87.891 ; Obesity (BMI 30.0-34.9) E66.9 ; History of attention deficit disorder Z86.59 and Essential hypertension I10 Brian Barbosa III, MD [address] [place] [address] [place] [address] 12/06/2024 Brian Barbosa Former smoker Z87.89 1 ; Essential hypertension I10 ; History of attention deficit disorder Z86.59 and Obesity (BMI 30.0-34.9) E66.9 Brian Barbosa III, MD [address] [place] [address] [address] [place] [address] 12/27/2024 Brian Barbosa Essential hypertensi on I10 ; Obesity (BMI 30.0-34.9) E66.9 ; BPH (benign prostatic hyperplasia) N40.0 ; Mixed hyperlipidemia E78.2 ; Former smoker Z87.891 and Central pterygium of eye, bilateral H11.023 Brian Barbosa III, MD [address] [place] [address] [place] [address] 11/29/2024 Brian Barbosa III, MD [address] [place] [address] [address] [place] [address] 11/29/2024 Brian Barbosa Assessments Encounter Date Diagnosis (ICD Code) Assessment Notes T reatment Notes Treatment Clinical Notes 04/25/2024 Former smoker (ICD-10 - Z87.891) He is highly motivated not to smoke. We discussed a plan to prevent relapse in times of stress and illness. 04/25/2024 History of attention deficit disorder (ICD-10 - Z86.59) He has requested that I prescribe a medication for this problem. I told him that this was beyond my scope of training and referred him to mental health benefits through his insurance for evaluation and treatment. 11/09/2024 Former smoker (ICD-10 - Z87.891) He is highly motivated not to smoke. We discussed a plan to prevent relapse in times of stress and illness. 11/09/2024 Central pterygium of eye, bilateral (ICD-10 - H11.023) He is scheduled for extraction of these lesions next week. I have taken. A careful history and examined him thoroughly. I find no contraindication to surgery. He is given full medical clearance with anesthesia for extraction of these lesions. 12/06/2024 Former smoker (ICD-10 - Z87.891) He [...] index is in the normal range. 12/27/2024 Essential hypertension (ICD-10 - I10) His blood pressure is stable. I recommended weight loss and sodium restriction and no changes medication. He will continue aggressive sodium restriction and weight reduction. He may need more medication. He was given an appointment to return to the office in 21 days for reassessment of his hypertension and the medical regimen. 04/25/2024 Overweight (ICD-10 - E66.3) He has lost 10 pounds since his last visit. His vital signs are stable. I recommended continued weight loss. Into his body mass index is in the normal range through regular exercise and a diet restricted in fact calories and sodium. 11/09/2024 Obesity (BMI 30.0-34.9) (ICD-10 - E66.9) He has lost several pounds. Height counseled him to continue until his body mass index is normal. I recommended weight loss at a rate of 1/2 pound per week through a diet restricted in fat calories sodium and concentrated sweets. I recommended regular exercise. 12/06/2024 History of attention deficit disorder (ICD-10 - Z86.59) He has requested that I prescribe a medication for this problem. I told him that this was beyond my scope of training and referred him to mental health benefits through his insurance for evaluation and treatment. 12/27/2024 BPH (benign prostatic hyperplasia) (ICD-10 - N40.0) He has been rising from sleep once a night to urinate. We have discussed modifications in lifestyle that he could make to reduce nocturia. 04/25/2024 BPH (benign prostatic hyperplasia) (ICD-10 - N40.0) He rises from sleep once a night and his prostatism is stable. No additional treatment is necessary this time. We discussed lifestyle modification as a means to control nocturia. 11/09/2024 History of attention deficit disorder (ICD-10 - [...] and concentrated sweets. I recommended regular exercise. 12/27/2024 Mixed hyperlipidemia (ICD-10 - E78.2) I have ordered. Comprehensive blood work which will continue a fasting lipid profile. This will be reviewed when available. No changes were made in his regimen today. I recommended aggressive weight loss and a diet low in sodium calories and animal fat. 04/25/2024 Mixed hyperlipidemia (ICD-10 - E78.2) Comprehensive blood work has been ordered prior to his next visit. He will continue with lifestyle modification to lower these values into their target range. 11/09/2024 Essential hypertension (ICD-10 - I10) His blood pressure is145/80. I recommended weight loss and sodium restriction and no changes medication. He will continue aggressive sodium restriction and weight reduction. He may need more medication. He was given an appointment to return to the office in 21 days for reassessment of his hypertension and the medical regimen. 12/27/2024 Former smoker (ICD-10 - Z87.891) He is highly motivated not to smoke. We discussed a plan to prevent relapse in times of stress and illness. 04/25/2024 Pterygium of both eyes (ICD-10 - H11.003) No contraindication to surgery sounds a day and he was given medical clearance. 12/27/2024 Central pterygium of eye, bilateral (ICD-10 - H11.023) Feet pterygium of the right eye has been removed. In the next few months to left one will be removed as well. Plan Of Treatment Pending Test Test Name Order Date PROFILE, FASTING (COMPREHENSIVE METABOLI C) 04/26/2019 PROFILE, FASTING (COMPREHENSIVE METABOLI C) 04/16/2022 PROFILE, FASTING (COMPREHENSIVE METABOLI C) 12/27/2024 PROFILE, FASTING (COMPREHENSIVE METABOLI C) 12/22/2019 PROFILE, RANDOM (COMPREHENSIVE METABOLIC ) 06/25/2022 LIPID PANEL 04/26/2019 LIPID PANEL 06/25/2022 LIPID PANEL 12/22/2019 PSA, TOTAL 04/16/2022 PSA, TOTAL 12/27/2024 PSA, TOTAL 04/26/2019 CBC w DIFF 12/22/2019 CBC w DIFF 04/16/2022 CBC w DIFF 12/27/2024 CBC w DIFF 04/26/2019 CBC w DIFF 06/25/2022 XR CHEST 2 VIEW PA & LAT 12/05/2019 XR HIP LT 07/14/2018 XR LUMBAR SPINE 4+ VIEWS 07/14/2018 XR PELVIS 07/14/2018 Lipid Panel 04/22/2022 Lipid Panel 12/27/2024 Giardia Ag Stool EIA 04/16/2022 Next Appt Details Provider Name:Brian Barbosa, 08/09/2025 04:00:00 PM, [address] [place] [address] [address], [place], [address], Provider Name:Brian Barbosa, 12/29/2025 03:30:00 PM, [address] [place] [address] [address], [place], [address], Insurance Providers Payer Name Payer Address Payer Phone Subscriber Number Group Number Insured Name Patient Relationship to Insured Coverage Start Date Coverage End Date [facility] [address] [place], [place] [id number] Brian Murphy Self - patient is the insured Medical (General) History Medical History History ICD Code attention deficit disorder hypertension pterygia overweight former smoker chronic diarrhea March 2022 Surgical History Surgery Date(Month/Year) Pterygium Removed, Right eye 10/2024 colonoscopy 2019 vasectomy 2002
[2025-01-30 07:33] LABS: MANUAL DIFF FLAG NO
[2025-01-30 07:42] LABS: Basophils Percent Auto 0.5 % (0-2); Eosinophils Absolute Auto 0.2 X10*3/uL (0.0-0.4); Eosinophils Percent Auto 2.6 % (0-4); Hematocrit 44.5 % (42.0-52.0); Hemoglobin 14.9 g/dl (14.0-18.0); Imm Gran Abs Auto 0.01 X10*3/uL (0.00-0.03); Imm Gran Pct Auto 0.2 % (0.0-0.4); Lymphocytes Percent Auto 35.7 % (20-40); Mean Corpuscular HGB Conc 33.5 g/dl (31.0-36.0); Mean Corpuscular Hemoglobin 28.9 pg (27.0-33.0); Mean Corpuscular Volume 86.2 fL (80.0-98.0); Mean Platelet Volume 8.7 fL (9.4-12.4); Monocytes Absolute Auto 0.6 X10*3/uL (0.1-1.2); Monocytes Percent Auto 10.5 % (2-11); Neutrophils Absolute Auto 2.9 x10*3/uL (2.0-8.3); Neutrophils Percent Auto 50.5 % (45-73); Platelet Count 290 X10*3/uL (160-400); Red Blood Count 5.16 X10*6/uL (4.60-5.80); Red Cell Distribution Width 12.9 % (11.0-16.0); White Blood Count 5.7 X10*3/uL (4.8-10.8)
[2025-01-30 08:13] LABS: Alanine Aminotransferase 30 U/L (0-40); Albumin Level 4.4 g/dL (3.5-5.0); Alkaline Phosphatase 72 U/L (39-117); Anion Gap 13 (12-20); Aspartate Amino Transferase 33 U/L (5-37); Bilirubin Total 0.7 mg/dL (0.0-1.0); Blood Urea Nitrogen 22 mg/dL (9-16); Calcium 9.5 mg/dL (8.4-10.2); Carbon Dioxide 29 mmol/L (22-29); Chloride 105 mmol/L (96-108); Cholesterol 224 mg/dL (<200); Estimated Glomerular Filt Rate > 60; Glucose Fasting 108 mg/dL (60-99); HDL Cholesterol 44 mg/dL (>40); LDL Cholesterol Calculated 159 mg/dL (<100); Potassium 4.7 mmol/L (3.3-5.1); Sodium 142 mmol/L (135-145); Total Protein 7.2 g/dL (6.5-8.0); Triglycerides 109 mg/dL (<150)
[2025-01-30 08:34] LABS: Prostate Specific Antigen 0.76 ng/mL (<0.05-4.0)
== END 2025-01-30 07:24 | disposition home or self-care (01) ==
LOC: HO.LAB 07:23
PROVIDERS: PCP Internal Medicine Medical Oncology; Visit Provider Internal Medicine Medical Oncology
DX: Z00.00 Encounter for general adult medical examination without abnormal findings (principal); Z12.5 Encounter for screening for malignant neoplasm of prostate; I10 Essential (primary) hypertension; E66.9 Obesity, unspecified; N40.0 Benign prostatic hyperplasia without lower urinary tract symptoms; E66.3 Overweight; E78.2 Mixed hyperlipidemia
CPT/HCPCS: 36415; 80053; 80061; 84153; 85025

== ENCOUNTER 2025-05-30 08:29 | Outpatient (REF) | payer BC, SELFPAY ==
--- OUTSIDE RECORDS SUMMARY | 2024-12-06 11:15 | XMS_ITS ---
Author Organization Brian Barbosa III, MD Address [address] [place] [address] [place] [address] Care Team Providers Care Sponsorship Coordinator Name Role Phone Brian Barbosa Primary Care [...] Date Provider Diagnosis Brian Barbosa III, MD [address] [place] [address] [place] [id number] 12/06/2024 Brian Barbosa Former smoker Z87.89 1 [...] Provider Name:Brian Barbosa, 08/09/2025 04:00:00 PM, [address] [facility] [address], [place], [address], Provider Name:Brian Barbosa, 12/29/2025 03:30:00 PM, 10 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 He has been to Ashely for 22 years and they have 2 children. He was born in [place], [place]. * Medications: T akingMetoprolol Succinate ER [...] 12/06/2024 Generated for Gladys perez/Michael/Farhatitting on: 0 05/31/2025 09:47 AM EDT History and Physical Notes * HPI [...]
--- OUTSIDE RECORDS SUMMARY | 2024-12-27 11:30 | XMS_ITS ---
Author Organization Brian Barbosa III, MD Address [address] [place] [address] [place] [address] Care Team Providers Care Can Worker Name Role Phone Brian Barbosa Primary Care [...] Date Provider Diagnosis Brian Barbosa III, MD [address] [place] [address] [place] [address] 12/27/2024 Brian Barbosa Essential hypertensi on I10 [...] OV Provider Name:Brian Barbosa, 08/09/2025 04:00:00 PM, [address] [place] [address] [address], [place], [phone], Provider Name:Brian Barbosa, 12/29/2025 03:30:00 PM, [address] [place] [address] [address], [place], [phone], Progress Notes * Brian MURPHYDOB:1970 ( 54 yo M)Acc No.[id number]:12/27/2024 Progress Notes Patient: Brian MAO Provider: Jitendra Barbosa MD :1970 A ge:54 Y S ex:Male Date:12/27/2024 [id number] Subjective: * Chief Complaints: * A nnual [...] into [address] 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 He has been to Ashely for 22 years and they have 2 children. He was born in [place], [place]. * Medications: T akingMetoprolol Succinate ER [...] MD Date: 0 12/27/2024 Generated for Gladys perez/Michael/eTransmitting on: 0 05/31/2025 09:47 AM EDT History [...]
--- OUTSIDE RECORDS SUMMARY | 2025-01-03 12:45 | XMS_ITS ---
Author Organization Brian Barbosa III, MD Address [address] [place] [address] Care Team Providers Care Voltage Tester Name Role Phone Brian Barbosa Primary Care Provider REASON FOR VISIT preop Social History Sex Assigned At : Social History Observation Description Sex Assigned At Male Encounters Encounter Location Date Provider Diagnosis Brian Barbosa III, MD [address] [place] [address] [place] [address] 01/03/2025 Brian Barbosa Plan Of Treatment Next Appt Details Provider Name:Brian Barbosa, 08/09/2025 04:00:00 PM, [address] [place] [address] [place], [phone], Provider Name:Brian Barbosa, 12/29/2025 03:30:00 PM, [address] [place] [address] [place], [phone], Progress Notes * Brian MURPHYDOB:1970 ( 55 yo M)Acc No.[id number]:01/03/2025 Patient: Brian MAO Provider: Jitendra Barbosa MD :1970 A ge:54 Y S ex:Male Date:01/03/2025 [id number] Subjective: * Chief Complaints: * 1 . Preop. * Medical History: Objective: * Vitals: Assessment: Plan: * Treatment: * Images: * The named appointment provid er may or may not be the originator of this progress note, and it is not deemed complete until electronically signed by the appointment provider. Sign off status: Pending * Provider: Jitendra Barbosa MD Date: 0 01/03/2025 Generated for Gladys perez/Michael/Farhatitting on: 0 05/31/2025 09:47 AM EDT
--- OUTSIDE RECORDS SUMMARY | 2025-03-07 06:45 | XMS_ITS ---
Author Organization Brian Barbosa III, MD Address [address] [place] [address] [place] [address] Care Team Providers Care Duty Engineer Name Role Phone Brian Barbosa Primary Care Provider Allergies Allergen (clinical drug ingredient) Drug/Non Drug Allergy documented on EMR Reaction Allergy Type Onset Date Status No Known Drug Allergy Unknown Drug Allergy Active Reason For Referral Reason Evaluate and Treat Tendinitis in Right shoulder Right Should Pain Questioning Injections Diagnosis 1 Tendinitis (M77.9) Diagnosis 2 Right shoulder pain (M25.511) Referral Organization Brian Barbosa III, MD Referring Provider First Name Brian Referring Provider Last Name Familia Referring Provider Speciality Internal M edicine Referred Provider [facility], Orthopedic Surgeons Referred Provider Specialty Orthopedic S urgery General Notes Neeta Parkinson 03/13/2025 11:58:53 AM > Referral and progress note faxed.Tesha Amber 03/21/2025 11:19:50 AM > Insurance Referral was sent to [facility] Referral Priority Routine Referral Appointment Date 05/29/2025 REASON FOR VISIT Painful skin lesion left axilla, Hypertension, Attention deficit disorder, Obesity, Benign prostatic hypertrophy Medications Medication SIG (Take, Route, Frequency, Duration) Notes Start Date End Date Status Metoprolol Succinate ER 100 MG 1 tablet Orally Once a day 11/29/2024 A ctive Imodium A-D 2 MG 1 tablet as needed O rally Four times a day Active Budesonide 3 MG 2 capsules Orally On ce a day Active Social History Tobacco Use: Social History Observation Description Date Details (start date - stop date) Former Smoker NA - NA Sex Assigned At : Social History Observation Description Sex Assigned At Male Tobacco Control (Standard) Question Answer Notes Tobacco use: Former smoker How long has it been since you last smoked? Grea ter than 10 years Vital Signs Temperature 97.5 degrees Fahrenheit 03/07/20 25 Blood pressure systolic 140 mm Hg 03/07/20 25 Blood pressure diastolic 75 mm Hg 025 Heart Rate 65 /min 03/07/2025 Height 66 in 03/07/2025 Weight 186 lbs 03/07/2025 BMI 30.02 kg/m2 03/07/2025 Encounters Encounter Location Date Provider Diagnosis Brian Barbosa III, MD [address] [place] [address] [place] [address] 03/07/2025 Brian Barbosa Skin lesion L98.9 ; Essential hypertension I10 ; Former smoker Z87.891 and Obesity (BMI 30.0-34.9) E66.9 Assessments Encounter Date Diagnosis (ICD Code) Assessment Notes Treatment Notes Treatment Clinical Notes 03/07/2025 Skin lesion (ICD-10 - L98.9) He will use ice for a few days. I instructed him not to remove it himself. If it continues to be a problem he will see dermatology. It appeared to be an irritated swollen skin tag which was otherwise typical. 03/07/2025 Essential hypertension (ICD-10 - I10) His blood pressure is stable. I recommended weight loss and sodium restriction and no changes medication. He will continue aggressive sodium restriction and weight reduction. He may need more medication. He was given an appointment to return to the office in 21 days for reassessment of his hypertension and the medical regimen. 03/07/2025 Former smoker (ICD-10 - Z87.891) He is highly motivated not to smoke. We discussed a plan to prevent relapse in times of stress and illness. 03/07/2025 Obesity (BMI 30.0-34.9) (ICD-10 - E66.9) His body mass index is 30. We have discussed diet and nutrition. We are made plans to lose weight at a rate of one half of a pound per week until the body mass index is in the normal range. Plan Of Treatment Medication Medication Name Sig Start Date Stop Date Notes Metoprolol Succinate ER 100 MG 1 tablet Orally Once a day 11/29/2024 Imodium A-D 2 MG 1 tablet as needed O rally Four times a day Budesonide 3 MG 2 capsules Orally Once a day Referrals Referral Date Details 03/07/2025 03/07/2025, Evaluate and Treat Tendinitis in Right shoulder Right Should Pain Questioning Injections, Orthopedic Surgeons [facility] Next Appt Details Follow Up: As Scheduled, Yola son: Annual Exam Provider Name:Brian Barbosa, 08/09/2025 04:00:00 PM, [address] [place] [address] [address], [place], [address], Provider Name:Brian Barbosa, 12/29/2025 03:30:00 PM, [address] [place] [address] [address], [place], [address], Progress Notes * Brian MURPHYDOB:1970 ( 55 yo M)Acc No.[id number]:03/07/2025 Progress Notes Patient: Brian MAO Provider: Jitendra Barbosa MD :1970 A ge:55 Y S ex:Male Date:03/07/2025 [facility] Subjective: * Chief Complaints: * P ainful skin lesion left axillaHypertensionAttention deficit disorderObesityBenign prostatic hypertrophy * HPI: C OVID-19 Screening: He has noticed a painful red skin lesion his left axilla which is difficult for him to see. On inspection it was a red inflamed skin tag with no malignant characteristics. He will use ice for a few days. If it enlarges he will return to the office. Questions H ave you had any new onset fever, chills, cough, congestion, sore throat, shortness of breath, muscle aches? N o * ROS: G eneral/Constitutional: pain I nflamed skin tag left axilla. C hills d enies. F atigue a [...] have been noted. G enitourinary: Frequent urination d enies. M usculoskeletal: Muscle aches d enies. P ainful joints d enies. S ciatica d enies. W eakness d enies. S kin: Itching d enies. R julian d enies. S kin lesion(s)?Skin tag left axilla. N eurologic: Difficulty speaking d enies. 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 He has been to Ashely for 22 years and they have 2 children. He was born in [place], [place]. * Medications: T akingMetoprolol Succinate ER 100 MG Tablet Extended Release 24 Hour 1 tablet Orally Once a day Imodium A-D 2 MG Tablet 1 tablet as needed Orally Four times a day Budesonide 3 MG Capsule Delayed Release Particles 2 capsules Orally Once a day Medication List reviewed and reconciled with the patientTaking Metoprolol Succinate ER 100 MG Tablet Extended Release 24 Hour 1 tablet Orally Once a day Taking Imodium A-D 2 MG Tablet 1 tablet as needed Orally Four times a day Taking Budesonide 3 MG Capsule Delayed Release Particles 2 capsules Orally Once a day Medication List reviewed and reconciled with the patient * Allergies: N o Known Drug Allergyno[Allergies Verified] Objective: * Vitals: H t: 66, Wt: 186, BMI:30.02, BP: 140/75, HR: 65, Temp: 97.5, Wt-k.37. * Examination: G eneral Examination: GENERAL APPEARANCE: [...] n o enlarged lymph nodes,spleen normal. SKIN: P ainful, swollen, red 2.5 mm skin tag left axilla with no malignant characteristics. HEART: n o clicks, gallops, murmurs, or [...] a lert, oriented. Assessment: * Assessment: 1. S kin lesion - L98.9 (Primary) N otes :He will use ice for a few days. I instructed him not to remove it himself. If it continues to be a problem he will see dermatology. It appeared to be an irritated swollen skin tag which was otherwise typical. 2 . E ssential hypertension - I10 N otes :His blood pressure is stable. I recommended weight loss and sodium restriction and no changes medication. He will continue aggressive sodium restriction and weight reduction. He may need more medication. He was given an appointment to return to the office in 21 days for reassessment of his hypertension and the medical regimen. 3 . F ormer smoker - Z87.891 N otes :He is highly motivated not to smoke. We discussed a plan to prevent relapse in times of stress and illness. 4 . O besity (BMI 30.0-34.9) - E66.9 N otes :His body mass index is 30. We have discussed diet and nutrition. We are made plans to lose weight at a rate of one half of a pound per week until the body mass index is in the normal range. Plan: * Treatment: * Procedure Codes: * Preventive Medicine: Counseling: [...] tobacco use and urged to quit. 0 03/07/2025 * Follow Up: A s Scheduled (Reason: Annual Exam) * Images: * Sign off status: Completed true * Provider: Jitendra Barbosa MD Date: 0 03/07/2025 Generated for Gladys perez/Michael/Farhatitting on: 0 05/31/2025 09:48 AM EDT History and Physical Notes * [...] and lower extremities, sensory exam intact SKIN: Painful, swollen, re d 2.5 mm skin tag left axilla with no malignant characteristics PERIPHERAL PULSES: normal BREASTS: no masses palpable b ilaterally MUSCULOSKELETAL: extremities unremark able, no clubbing, cyanosis or edema LYMPH NODES: no enlarged lymph no wes,spleen normal RECTAL EXAM: not examined PSYCH: alert, oriented ORAL CAVITY: normal, unremarkable Consultation Request Notes Referral Date Referring Provider Referred Provider Not radha 03/07/2025 Brian Barbosa [facility], Orthopedic Surgeons Evaluate and Treat Tendinitis in Right shoulder Right Should Pain Questioning Injections
--- OUTSIDE RECORDS SUMMARY | 2025-03-14 10:00 | XMS_ITS ---
Author Organization Brian Barbosa III, MD Address [address] [place] [address] [place] [address] Care Team Providers Care Corrective And Manual Arts Therapist Name Role Phone Brian Barbosa Primary Care [...] Date Provider Diagnosis Brian Barbosa III, MD [address] [place] [address] [place] [address] 03/14/2025 Brian Barbosa Essential hypertensi on I10 [...] OV Provider Name:Brian Barbosa, 08/09/2025 04:00:00 PM, [address] [place] [address] [address], [place], [address], Provider Name:Brian Barbosa, 12/29/2025 03:30:00 PM, [address] [place] [address] [address], [place], [address], Progress Notes * Lukas MURPHY:1970 ( 55 yo M)Acc No.[id number]:03/14/2025 Patient: Nereida TEEBrian Ham Provider: Jitendra Barbosa MD :1970 A ge:55 Y S ex:Male Date:03/14/2025 Address:[address], [facility], [id number] Subjective: * Chief Complaints: * H ypertensionObesityBenign [...] of provider rendering services: { ...} [address] [facility] [address] L ocation of patient: leonardo jacinto listed [...] X10*3/uL) 0.000 (Ref Range: 0.0-0.012 X10*3/uL) ???Lab:Comprehensive [facility]. Panel Fast (Order Date - 01/30/2025) (Collection Date & Time - 01/30/2025 07:31 AM)?ValueReference Range?Rxrrqw746174- 145 - mmol/L?Bilirubin Total0.70.0-1.0 - mg/dL?Aspartate Amino Izyeoyccpjq725-05 - U/L?Alanine Zldalwqyazrqxjtl022-24 - U/L?Total Protein7.26.5-8.0 - g/dL?Albumin Level4.43.5-5.0 - g/dL?Alkaline Xdmyyqfdmxq1212-569 - U/L?Potassium4.73.3-5.1 - mmol/L?Evrwznns070 96-108 - mmol/L?Carbon Jdbuazj1714-39 - mmol/L?Anion Lpf7851-10 - ?Blood Urea Imhrliqy91M4-75 - mg/dL?Creatinine0.980.5-1.4 - mg/dL ?Estimated Glomerular Filt Rate> 60-?Glucose Dnbcbps158T27-17 - mg/dL?Calcium9.58.4-10.2 - mg/dL * Lab:Lipid Panel [...] Barbosa MD Date: 0 03/14/2025 Generated for Lai chris/Michael/eTransmitting on: 0 05/31/2025 09:47 AM EDT History and Physical Notes * HPI (History of Present Illness) Category Sub-Category Detail Notes Telehealth Location of [facility] rendering services:: {...} [address] [facility] [address] Location of patient:: address listed in demographics [...]
--- NOTE | ~2025-05-30 | XR_ITS ---
EXAMINATION: XR SHOULDER, RIGHT CLINICAL INFORMATION: M25.511 - Pain in right shoulder COMPARISON: None available. TECHNIQUE: Two views of the right shoulder. FINDINGS: Minimal degenerative changes noted at the AC joint. There is no AC joint separation. Glenohumeral joint is intact as well. Small degenerative cysts present in the posterior humeral head. There are also minute marginal osteophytes involving the humeral head. There is possible amorphous calcific density projecting in the region of the lesser tuberosity. XR/XR shoulder RT min 2V IMPRESSION: Suspected calcific density projecting in the region of lesser tuberosity raises question of subscapularis calcific tendinitis. If clinically relevant, consider an axillary and internal rotation views to aid in confirmation. Minimal degenerative changes. Electronically signed by: Kale Adams MD 05/30/2025 03:21 PM EDT
--- OUTSIDE RECORDS SUMMARY | 2025-05-31 09:47 | XMS_ITS | Patient Health Record ---
Author Organization [facility] Address [address] [place] [address] Care Team Providers Care Lead Android Developer Name Role Phone Rich Barbosa MD Primary Care Provider Unavailab Rich Lord Unavailable [phone] Allergies No Known Allergies Reason For Referral Referring Provider First Name Rich Referring Provider Last Name Familia Referring Provider Speciality Oncology Referred Organization [facility] Referred Provider Rich Beck Referred Address [address],[place], [place],[address],[place] Referred Provider Specialty Gastroentero logy General Notes [...] Screening for malignant neoplasm of colon done (018207529882709) Encounter for screening for malignant neoplasm of colon (Z12.11) Active confirmed Problem Diarrhea (03769634) Diarrhea (R19.7) Active confirmed Problem History of polyp of colon (situation) (370836391) Personal history of colonic polyps (Z86.010) Active confirmed Problem Preprocedural examination done (908044982511847) Preprocedural examination (Z01.818) Active confirmed Problem Lymphocytic colitis (6482212999) Lymphocytic colitis (K52.89) Active confirmed Problem Diverticulosis of colon (306298983) Diverticulosis of colon (K57.30) Active confirmed Vital Signs Blood pressure diastolic 00 mm Hg 08/09/2024 Height 66 in 08/09/2024 Blood pressure systolic 00 mm Hg 08/09/2024 Weight 186 lbs 08/09/2024 BMI 30.02 kg/m2 08/09/2024 Encounters Encounter Location Date Provider Diagnosis [facility] [address] [place] [phone] 08/09/2024 Rich Beck Lymphocytic colitis K52.89 ; Encounter for screening for malignant neoplasm of colon Z12.11 and Personal history of colonic polyps Z86.010 [facility] [address] [place] [address] 06/27/2024 Rich Beck Assessments Encounter Date Diagnosis [...] him a prescription to be able to peanut picker some budesonide to have handy in [...] him a prescription to be able to peanut picker some budesonide to have handy in [...] him a prescription to be able to peanut picker some budesonide to have handy in [...] Provider Name:Rich Beck , 08/23/2025 04:20:00 PM, [address] [place] [address], [address], [place], [address], Insurance Providers Payer Name Payer Address Payer Phone Subscriber Number Group Number Insured Name Patient Relationship to Insured Coverage Start Date Coverage End Date [employer] [address] [place] [address] [id number] RICH BENSON Self - patient is the insured Medical (General) History Medical History History ICD Code Denies ME,DM,CVA,Lung disease,renal dise ase Hypertension Screening colonoscopy in [...]
--- OUTSIDE RECORDS SUMMARY | 2025-05-31 09:48 | XMS_ITS | Patient Health Record ---
Author Organization Brian Barbosa III, MD Address [address] [place] [address] Care Team Providers Care Sales Representative Door To Door Name Role Phone Brian Barbosa Primary Care Provider [phone] Allergies Allergen (clinical drug ingredient) Drug/Non [...] ff Reviewed date:03/14/2025 01:09:28 PM Interpretation: Performing Lab:[facility], [address] [place] [phone] Notes/Report: White Blood Count 5.7 4.8-10.8 X10*3/uL [...] NRBC Abs Auto 0.000 0.0-0.012 X10*3/uL Comprehensive [place]. Panel Fa st Reviewed date:03/14/2025 01:09:28 PM Interpretation: Performing Lab:[facility], [address] [place] [phone] Notes/Report: Sodium 142 135-145 mmol/L Potassium 4.7 [...] Panel Reviewed date:03/14/2025 01:09:28 PM Interpretation: Performing Lab:[facility], [address] [place] [phone] Notes/Report: Triglycerides 109 <150 mg/dL Desirable Triglyceride: [...] Antigen Reviewed date:03/14/2025 01:09:28 PM Interpretation: Performing Lab:[facility], [address] [place] [phone] Notes/Report: Prostate Specific Antigen 0.76 <0.05-4.0 ng/mL [...] Provider Speciality Internal M edicine Referred Provider [facility], Orthopedic Surgeons Referred Provider [facility] General Notes Tesha Neeta 03/13/2025 11:58:53 AM > Referral and progress note faxed.Tesha Neeta 03/21/2025 11:19:50 AM > Insurance Referral was sent to [facility] Orth[facility] Referral Priority Routine Referral [...] Problem Status W/U Status Risk Notes Problem 8015058 Former smoker (Z87.891) Active confirmed He is highly motivated not to smoke. We discussed a plan to prevent relapse in times of stress and illness. Problem 354423225 Overweight (E66.3) Active confirmed He has lost 10 pounds since his last visit. His vital signs are stable. I recommended continued weight loss. Into his body mass index is in the normal range through regular exercise and a diet restricted in fact calories and sodium. Problem 151040404603163 Obesity (BMI 30.0-34.9) (E66.9) Active confirmed His body mass index is 30. We have discussed diet and nutrition. We are made plans to lose weight at a rate of one half of a pound per week until the body mass index is in the normal range. Problem 901516125 Mixed hyperlipidemia (E78.2) Active confirmed I have ordered. Comprehensive blood work which will continue a fasting lipid profile. This will be reviewed when available. No changes were made in his regimen today. I recommended aggressive weight loss and a diet low in sodium calories and animal fat. Problem 23529527 Simple chronic bronchitis (J41.0) Active confirmed He will treat himself conservatively with cough suppressants and antipyretics and fluids. Problem Benign prostatic hyperplasia (155309860) BPH (benign prostatic hyperplasia) (N40.0) Active confirmed He has been rising from sleep once a night to urinate. We have discussed modifications in lifestyle that he could make to reduce nocturia. Problem 48690597 Essential hypertension (I10) Active confirmed His blood pressure is stable. I recommended weight loss and sodium restriction and no changes medication. He will continue aggressive sodium restriction and weight reduction. He may need more medication. He was given an appointment to return to the office in 21 days for reassessment of his hypertension and the medical regimen. Problem Diarrhea (76158606) Diarrhea (R19.7) Active confirmed His GI panel is negative and his blood work is unremarkable. He was referred to gastroenterology to rule out an inflammatory bowel disorder. Problem 90535164 Colitis (K52.9) Active confirmed The exact type of colitis is unavailable to me at this time except that it is microscopic. He has responded nicely to the medication given to him by the gastroenterologis t, which will be continued. Problem 421266207 History of attention deficit disorder (Z86.59) Active [...] Date Provider Diagnosis Brian Barbosa III, MD [address] [place] [address] [place] [address] 11/09/2024 Brian Barbosa Central pterygium of eye, bilateral H11.023 ; Former smoker Z87.891 ; Obesity (BMI 30.0-34.9) E66.9 ; History of attention deficit disorder Z86.59 and Essential hypertension I10 Brian Barbosa III, MD [address] [place] [address] [place] [address] 12/06/2024 Brian Barbosa Former smoker Z87.89 1 ; Essential hypertension I10 ; History of attention deficit disorder Z86.59 and Obesity (BMI 30.0-34.9) E66.9 Brian Barbosa III, MD [address] [place] [address] [place] [address] 12/27/2024 Brian Barbosa Essential hypertensi on I10 ; Obesity (BMI 30.0-34.9) E66.9 ; BPH (benign prostatic hyperplasia) N40.0 ; Mixed hyperlipidemia E78.2 ; Former smoker Z87.891 and Central pterygium of eye, bilateral H11.023 Brian Barbosa III, MD [address] [place] [address] [place] [address] 03/07/2025 Brian Barbosa Skin lesion L98.9 ; Essential hypertension I10 ; Former smoker Z87.891 and Obesity (BMI 30.0-34.9) E66.9 Brian Barbosa III, MD [address] [place] [address] [place] [address] 03/14/2025 Brian Barbosa Essential hypertensi on I10 ; Former smoker Z87.891 ; History of attention deficit disorder Z86.59 ; Simple chronic bronchitis J41.0 and Mixed hyperlipidemia E78.2 Brian Barbosa III, MD [address] [place] [address] [place] [address] 11/29/2024 Brian Barbosa III, MD [address] [place] [address] [place] [address] 11/29/2024 Brian Barbosa Assessments Encounter Date Diagnosis [...] Details Provider Name:Brian Barbosa, 08/09/2025 04:00:00 PM, [address] [place] [address] [address], [place], [address], Provider Name:Brian Barbosa, 12/29/2025 03:30:00 PM, [address] [place] [address] [address], [place], [address], Insurance Providers Payer Name Payer Address Payer Phone Subscriber Number Group Number Insured Name Patient Relationship to Insured Coverage Start Date Coverage End Date [facility] [address] [place], [place] [id number] Brian Murphy Self - patient is the insured Medical (General) History Medical History History ICD Code attention deficit disorder hypertension pterygia overweight former smoker chronic diarrhea March 2022 Surgical History Surgery Date(Month/Year) Pterygium Removed, Right eye 10/2024 colonoscopy 2019 vasectomy 2002
== END 2025-05-30 08:30 | disposition home or self-care (01) ==
LOC: HO.HOSX 08:29
PROVIDERS: Visit Provider Orthopaedic Surgery
DX: M25.311 Other instability, right shoulder (principal)
CPT/HCPCS: 73030

== ENCOUNTER 2025-05-30 15:00 | Outpatient (AMB) | payer BC, SELFPAY ==
--- OUTSIDE RECORDS SUMMARY | 2024-12-06 11:15 | XMS_ITS ---
Author Organization Brian Barbosa III, MD Address [address] [place] [address] [place] [address] Care Team Providers Care Filling Hand Name Role Phone Brian Barbosa Primary Care Provider Allergies Allergen (clinical drug ingredient) Drug/Non Drug Allergy documented on EMR Reaction Allergy Type Onset Date Status No Known Drug Allergy Unknown Drug Allergy Active REASON FOR VISIT hypertension, ADHD, Obesity, Benign prostatic hypertrophy Medications Medication SIG (Take, Route, Frequency, Duration) Notes Start Date End Date Status Metoprolol Succinate ER 50 MG TAKE 1 TABLET BY MOUTH EVERY DAY Active Imodium A-D 2 MG 1 tablet as needed O rally Four times a day Active Budesonide 3 MG 2 capsules Orally On ce a day Active Metoprolol Succinate ER 100 MG 1 tablet Orally Once a day 11/29/2024 A ctive Social History Tobacco Use: Social History Observation Description Date Details (start date - stop date) Former Smoker NA - NA Sex Assigned At : Social History Observation Description Sex Assigned At Male Tobacco Use/Smoking Question Answer Notes Patient is a former smoker How long has it been since you last smoked? > 10 years Vital Signs Temperature 98.4 degrees Fahrenheit 03/18/20 25 Blood pressure systolic 140 mm Hg 12/07/19 25 Blood pressure diastolic 81 mm Hg 025 Heart Rate 64 /min 12/06/2024 Height 66 in 12/06/2024 Weight 193 lbs 12/06/2024 BMI 31.15 kg/m2 12/06/2024 Encounters Encounter Location Date Provider Diagnosis Brian Barbosa III, MD [address] [place] [address] [place] [address] 12/06/2024 Brian Barbosa Former smoker Z87.89 1 ; Essential hypertension I10 ; History of attention deficit disorder Z86.59 and Obesity (BMI 30.0-34.9) E66.9 Assessments Encounter Date Diagnosis (ICD Code) Assessment Notes Treatment Notes Treatment Clinical Notes 12/06/2024 Former smoker (ICD-10 - Z87.891) He is highly motivated not to smoke. We discussed a plan to prevent relapse in times of stress and illness. 12/06/2024 Essential hypertension (ICD-10 - I10) His blood pressure is stable. I recommended weight loss and sodium restriction and no changes medication. He will continue aggressive sodium restriction and weight reduction. He may need more medication. He was given an appointment to return to the office in 21 days for reassessment of his hypertension and the medical regimen. 12/06/2024 History of attention deficit disorder (ICD-10 - Z86.59) He has requested that I prescribe a medication for this problem. I told him that this was beyond my scope of training and referred him to mental health benefits through his insurance for evaluation and treatment. 12/06/2024 Obesity (BMI 30.0-34.9) (ICD-10 - E66.9) He has lost several pounds. Height counseled him to continue until his body mass index is normal. I recommended weight loss at a rate of 1/2 pound per week through a diet restricted in fat calories sodium and concentrated sweets. I recommended regular exercise. Plan Of Treatment Medication Medication Name Sig Start Date Stop Date Notes Metoprolol Succinate ER 50 MG TAKE 1 TAB LET BY MOUTH EVERY DAY Imodium A-D 2 MG 1 tablet as needed O rally Four times a day Budesonide 3 MG 2 capsules Orally Once a day Metoprolol Succinate ER 100 MG 1 tablet Orally Once a day 11/29/2024 Next Appt Details Follow Up: As Scheduled, Yola son: Annual Exam Provider Name:Brian Barbosa, 08/09/2025 04:00:00 PM, [address] [facility] [address], [place], [address], Provider Name:Brian Barbosa, 12/29/2025 03:30:00 PM, [address] [facility] [address], [place], [address], Progress Notes * Brian MURPHYDOB:1970 ( 54 yo M)Acc No.[id number]:12/06/2024 Progress Notes Patient: Brian MAO Provider: Jitendra Barbosa MD :1970 A ge:54 Y S ex:Male Date:12/06/2024 Address: [address], [id number] Subjective: * Chief Complaints: * H ypertensionADHDObesityBenign prostatic hypertrophy * HPI: C OVID-19 Screening: He returns to the office for further adjustment of his blood pressure. He has a gym at home where he works out and has been consuming creatine. He has gained 5 pounds which she says is due to fluid retention from creatine. His blood pressure today was 140/81. He was continued on current medications without change.Has no new complaints. He was cautioned about consuming too much creatine. Questions H ave you had any new onset fever, chills, cough, congestion, sore throat, shortness of breath, muscle aches? N o * ROS: G eneral/Constitutional: pain R ight shoulder, otherwise only normal aches and pains. C hills d enies. F atigue a dmits. F ever d enies. E NT: Decreased hearing d enies. R espiratory: Cough d enies. C ardiovascular: Chest pain with exertion d enies. D yspnea on exertion?denies. S hortness of breath d enies. G astrointestinal: Constipation d enies. D ecreased appetite d enies.?Diarrhea d enies. H eartburn d enies. N ausea d enies. R ectal bleeding?denies. V omiting d enies. H ematology: bruising d enies. p etechiae d enies. S wollen glands n one have been noted. G enitourinary: Frequent urination o nce a night. M usculoskeletal: Muscle aches d enies. P ainful joints d enies. S ciatica d enies. W eakness d enies. S kin: Itching d enies. R julian d enies. S kin lesion(s)?denies. N eurologic: Difficulty speaking d enies. D izziness d enies.?Headache d enies. L ow back pain d enies. P sychiatric: Depressed mood d enies. * Medical History: * Surgical History: v asectomy 2002colonoscopy 2018Upcoming surgery scheduled for next thursday * Hospitalization/Major Diagno stic Procedure: D enies Past Hospitalization * Family History: F ather: , Colon cancer, diagnosed with Cancer. M other: , Hypertension, type 2 diabetes, stroke, diagnosed with DM, HTN. 1 brother(s) . . His brother has a history of malignant melanoma. 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 He has been to Ashely for 22 years and they have 2 children. He was born in [place], [place]. * Medications: T akingMetoprolol Succinate ER 50 MG Tablet Extended Release 24 Hour TAKE 1 TABLET BY MOUTH EVERY DAY Imodium A-D 2 MG Tablet 1 tablet as needed Orally Four times a day Budesonide 3 MG Capsule Delayed Release Particles 2 capsules Orally Once a day Metoprolol Succinate ER 100 MG Tablet Extended Release 24 Hour 1 tablet Orally Once a day Medication List reviewed and reconciled with the patientTaking Metoprolol Succinate ER 50 MG Tablet Extended Release 24 Hour TAKE 1 TABLET BY MOUTH EVERY DAY Taking Imodium A-D 2 MG Tablet 1 tablet as needed Orally Four times a day Taking Budesonide 3 MG Capsule Delayed Release Particles 2 capsules Orally Once a day Taking Metoprolol Succinate ER 100 MG Tablet Extended Release 24 Hour 1 tablet Orally Once a day Medication List reviewed and reconciled with the patient * Allergies: N o Known Drug Allergyno[Allergies Verified] Objective: * Vitals: H t: 66, Wt: 193, BMI:31.15, BP: 140/81, HR: 64, Temp: 98.4, Wt-k.54. * Examination: G eneral Examination: GENERAL APPEARANCE: p ilene, well nourished, well developed, in no acute distress, calm and relaxed, obese, man. HEAD: a traumatic, normocephalic. EYES: e nataliia, perrla, anicteric, conjugate. EARS: n ormal. NOSE: s eptum intact. ORAL CAVITY: n ormal, unremarkable. NECK/THYROID: n o jugular venous distention, no carotid bruit, thyroid normal. LYMPH NODES: n o enlarged lymph nodes,spleen normal. SKIN: n o suspicious lesions, anicteric. HEART: n o clicks, gallops, murmurs, or rubs, regular rhythm, S1, S2 normal, no s3, or vascular bruits. LUNGS: c lear to auscultation . BREASTS: no masses palpable bilaterally. ABDOMEN: b owel sounds normal, no ascites, no organomegaly, no mass, centripital obesity. RECTAL EXAM: n ot examined. MUSCULOSKELETAL: e xtremities unremarkable, no clubbing, cyanosis or edema. PERIPHERAL PULSES: n ormal. NEUROLOGIC: a lert and oriented, cranial nerves 2-12 grossly intact, deep tendon reflexes 2+ symmetrical, motor strength normal upper and lower extremities, sensory exam intact. PSYCH: a lert, oriented. Assessment: * Assessment: 1. E ssential hypertension - I10 (Primary) N otes :His blood pressure is stable. I recommended weight loss and sodium restriction and no changes medication. He will continue aggressive sodium restriction and weight reduction. He may need more medication. He was given an appointment to return to the office in 21 days for reassessment of his hypertension and the medical regimen. 2 . F ormer smoker - Z87.891 N otes :He is highly motivated not to smoke. We discussed a plan to prevent relapse in times of stress and illness. 3 . H istory of attention deficit disorder - Z86.59 N otes :He has requested that I prescribe a medication for this problem. I told him that this was beyond my scope of training and referred him to mental health benefits through his insurance for evaluation and treatment. 4 . O loyd (BMI 30.0-34.9) - E66.9 N otes :He has lost several pounds. Height counseled him to continue until his body mass index is normal. I recommended weight loss at a rate of 1/2 pound per week through a diet restricted in fat calories sodium and concentrated sweets. I recommended regular exercise. Plan: * Treatment: 2. O thers Continue Metoprolol Succinate ER Tablet Extended Release 24 Hour, 100 MG, 1 tablet, Orally, Once a day; C ontinue Imodium A-D Tablet, 2 MG, 1 tablet as needed, Orally, Four times a day; C ontinue Budesonide Capsule Delayed Release Particles, 3 MG, 2 capsules, Orally, Once a day. * Procedure Codes: * Preventive Medicine: Counseling: C are goal follow-up plan: Counseling for abnormal BMI given Y es Above Normal BMI Follow-up D ietary management education, guidance, and counseling, Dietary needs education, Exercise promotion: strength training, Exercise promotion: stretching, Feeding regime, Giving encouragement to exercise, Lifestyle education regarding diet, Nutrition / feeding management, Nutrition therapy, Prescribed activity/exercise education, Prescribed diet education, Prescribed dietary intake, Special diet education, Weight monitoring , Intervention, Order not done: Medical or Other reason not done S moking/Tobacco Use Patient counseled on the dangers of tobacco use and urged to quit. 0 12/06/2024 * Follow Up: A s Scheduled (Reason: Annual Exam) * Images: * Sign off status: Completed true * Provider: Jitendra Barbosa MD Date: 0 12/06/2024 Generated for Gladys perez/Michael/Farhatitting on: 0 05/30/2025 05:26 PM EDT History and Physical Notes * HPI (History of Present Illness) Category Sub-Category Detail Notes COVID-19 Screening Questions Have you had any new onset fever, chills, cough, congestion, sore throat, shortness of breath, muscle aches?: No Examination Category Sub-Category Detail Notes General Examination GENERAL APPEARANCE: pleasant , well nourished, well developed, in no acute distress, calm and relaxed, obese, man HEAD: atraumatic, normocep halic EYES: eomi, perrla, anicte edson, conjugate EARS: normal NOSE: septum intact NECK/THYROID: no jugular venous di stention, no carotid bruit, thyroid normal HEART: no clicks, gallops, murmurs, or rubs, regular rhythm, S1, S2 normal, no s3, or vascular bruits LUNGS: clear to auscultatio n ABDOMEN: bowel sounds normal, no ascites, no organomegaly, no mass, centripital obesity NEUROLOGIC: alert and oriented, cranial nerves 2-12 grossly intact, deep tendon reflexes 2+ symmetrical, motor strength normal upper and lower extremities, sensory exam intact SKIN: no suspicious lesion s, anicteric PERIPHERAL PULSES: normal BREASTS: no masses palpable b ilaterally MUSCULOSKELETAL: extremities unremark able, no clubbing, cyanosis or edema LYMPH NODES: no enlarged lymph no wes,spleen normal RECTAL EXAM: not examined PSYCH: alert, oriented ORAL CAVITY: normal, unremarkable
--- OUTSIDE RECORDS SUMMARY | 2024-12-27 11:30 | XMS_ITS ---
Author Organization Brian Barbosa III, MD Address [address] [place] [id number] Care Team Providers Care Physician/Allergy/Immunology Name Role Phone Brian Barbosa Primary Care Provider [phone] Allergies Allergen (clinical drug ingredient) Drug/Non Drug Allergy documented on EMR Reaction Allergy Type Onset Date Status No Known Drug Allergy Unknown Drug Allergy Active Results Component Value Reference Range Notes URINE DIP STICK Reviewed date:12/27/2024 04:06:25 PM Interpretation: Performing Lab: Notes/Report: SG 1.010 1.005 - 1.025 pH 6.0 5.0 - 9.0 NASRIN Negative Negative - NIT Negative Negative - PRO 15 Negative - Trace GLU Negative Negative - KET Negative Negative - UBG 0.2 0.1 - 1.8 TITA Negative 0.2 - 1.3 BLD Negative Negative - REASON FOR VISIT annual exam Medications Medication SIG (Take, Route, Frequency, Duration) Notes Start Date End Date Status Metoprolol Succinate ER 100 MG 1 tablet Orally Once a day 11/29/2024 A ctive Budesonide 3 MG 2 capsules Orally On ce a day Active Imodium A-D 2 MG 1 tablet as needed O rally Four times a day Active Social History Tobacco Use: Social History Observation Description Date Details (start date - stop date) Former Smoker NA - NA Sex Assigned At : Social History Observation Description Sex Assigned At Male Tobacco Control (Standard) Question Answer Notes Tobacco use: Former smoker How long has it been since you last smoked? Dimitriosa ter than 10 years AUDIT-C (Standard) Question Answer Notes Did you have a drink containing alcohol in the p ast year? No Points 0 Interpretation Negative Vital Signs Temperature 98.2 degrees Fahrenheit 12/28/19 25 Blood pressure systolic 140 mm Hg 12/28/19 25 Blood pressure diastolic 70 mm Hg 025 Heart Rate 62 /min 12/27/2024 Height 66 in 12/27/2024 Weight 190 lbs 12/27/2024 BMI 30.66 kg/m2 12/27/2024 Encounters Encounter Location Date Provider Diagnosis Brian Barbosa III, MD [address] [place] [address] [place] [id number] 12/27/2024 Brian Barbosa Essential hypertensi on I10 ; Obesity (BMI 30.0-34.9) E66.9 ; BPH (benign prostatic hyperplasia) N40.0 ; Mixed hyperlipidemia E78.2 ; Former smoker Z87.891 and Central pterygium of eye, bilateral H11.023 Assessments Encounter Date Diagnosis (ICD Code) Assessment Notes Treat ment Notes Treatment Clinical Notes 12/27/2024 Essential hypertension (ICD-10 - I10) His blood pressure is stable. I recommended weight loss and sodium restriction and no changes medication. He will continue aggressive sodium restriction and weight reduction. He may need more medication. He was given an appointment to return to the office in 21 days for reassessment of his hypertension and the medical regimen. 12/27/2024 Obesity (BMI 30.0-34.9) (ICD-10 - E66.9) His body mass index is 30. We have discussed diet and nutrition. We are made plans to lose weight at a rate of one half of a pound per week until the body mass index is in the normal range. 12/27/2024 BPH (benign prostati c hyperplasia) (ICD-10 - N40.0) He has been rising from sleep once a night to urinate. We have discussed modifications in lifestyle that he could make to reduce nocturia. 12/27/2024 Mixed hyperlipidemia (ICD-10 - E78.2) I have ordered. Comprehensive blood work which will continue a fasting lipid profile. This will be reviewed when available. No changes were made in his regimen today. I recommended aggressive weight loss and a diet low in sodium calories and animal fat. 12/27/2024 Former smoker (ICD-1 0 - Z87.891) He is highly motivated not to smoke. We discussed a plan to prevent relapse in times of stress and illness. 12/27/2024 Central pterygium of eye, bilateral (ICD-10 - H11.023) Feet pterygium of the right eye has been removed. In the next few months to left one will be removed as well. Plan Of Treatment Medication Medication Name Sig Start Date Stop Date Notes Metoprolol Succinate ER 100 MG 1 tablet Orally Once a day 11/29/2024 Budesonide 3 MG 2 capsules Orally Once a day Imodium A-D 2 MG 1 tablet as needed O rally Four times a day Pending Test Test Name Order Date PROFILE, FASTING (COMPREHENSIVE METABOLI C) 12/27/2024 PSA, TOTAL 12/27/2024 CBC w DIFF 12/27/2024 Lipid Panel 12/27/2024 Next Appt Details Follow Up: 6 Months, Reason: OV Provider Name:Brian Barbosa, 08/09/2025 04:00:00 PM, [address] [place] [address] [address], [place], [phone], Provider Name:Brian Barbosa, 12/29/2025 03:30:00 PM, [address] [place] [address] [address], [place], [phone], Progress Notes * Brian MURPHYDOB:1970 ( 54 yo M)Acc No.[id number]:12/27/2024 Progress Notes Patient: Brian MAO Provider: Jitendra Barbosa MD :1970 A ge:54 Y S ex:Male Date:12/27/2024 [id number] Subjective: * Chief Complaints: * A nnual exam * HPI: D epression Screening: Mina felix returns to the office at the age of 54, for his annual physical examination. He says he is feeling well and has no specific complaints. He has been a nonsmoker for 30 years. In the past he had right shoulder pain but that has diminished and is not a problem at this time.? He denies any dyspnea on exertion or chest pain or bleeding. He does have seasonal allergies and is preparing for pollen season. He arises from sleep once and occasionally twice to urinate. We have discussed lifestyle modification as a way of reducing nocturia.His colitis has been inactive. He is due for another colonoscopy into [address] Brian Beck at [facility].His blood pressure was controlled today.His body mass index was 30.6 and he continues to pursue weight loss. PHQ-9 L ittle interest or pleasure in doing things?Not at all F eeling down, depressed, or hopeless N ot at all T rouble falling or staying asleep, or sleeping too much S everal days F eeling tired or having little energy S everal days P oor appetite or overeating N ot at all F eeling bad about yourself or that you are a failure, or have let yourself or your family down N ot at all T rouble concentrating on things, such as reading the newspaper or watching television N ot at all M oving or speaking so slowly that other people could have noticed; or the opposite, being so fidgety or restless that you have been moving around a lot more than usual N ot at all T houghts that you would be better off or of hurting yourself in some way N ot at all T otal Score 2 I nterpretation M inimal Depression C OVID-19 Screening: Questions H ave you had any new onset fever, chills, cough, congestion, sore throat, shortness of breath, muscle aches? N o S OLEG Questions: SDOH Questions I n the past year have you been worried about losing your housing? N o I n the past year have you or any family members you live with been unable to get any of the following when it was really needed? Check all that apply: N one * ROS: G eneral/Constitutional: pain o nly normal aches and pains. C hills d enies.?Fatigue a dmits. F ever d enies. E NT: Decreased hearing d enies. R espiratory: Cough d enies. C ardiovascular: Chest pain with exertion d enies. D yspnea on exertion?denies. S hortness of breath d enies. G astrointestinal: Constipation o ccasional. D ecreased appetite d enies. D iarrhea R marcel. H eartburn o ccasional. N ausea d enies. R ectal bleeding d enies. V omiting d enies. H ematology: bruising [...] Medical History: * Surgical History: v asectomy 2003colonoscopy 2019Pterygium Removed, Right eye 10/2024 * Hospitalization/Major Diagno stic Procedure: D enies Past Hospitalization * Family History: F ather: , Colon cancer, diagnosed with Cancer. M other: , Hypertension, type 2 diabetes, stroke, diagnosed with DM, HTN. 1 brother(s) . . His brother has a history of malignant melanoma. * Social History: T obacco Use: T obacco Control (Standard) T obacco use: F ormer smoker H ow long has it been since you last smoked??Greater than 10 years D rugs/Alcohol: D rugs H ave you used drugs other than those for medical reasons in the past 12 months? N o D rug/Alcohol: A JOLEEN-C (Standard) D id you have a drink containing alcohol in the past year? 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 He has been to Ashely for 22 years and they have 2 children. He was born in [place], [place]. * Medications: T akingMetoprolol Succinate ER 100 MG Tablet Extended Release 24 Hour 1 tablet Orally Once a day Taking Metoprolol Succinate ER 100 MG Tablet Extended Release 24 Hour 1 tablet Orally Once a day DiscontinuedImodium A-D 2 MG Tablet 1 tablet as needed Orally Four times a day Budesonide 3 MG Capsule Delayed Release Particles 2 capsules Orally Once a day Metoprolol Succinate ER 50 MG Tablet Extended Release 24 Hour TAKE 1 TABLET BY MOUTH EVERY DAY Medication List reviewed and reconciled with the patientDiscontinued Imodium A-D 2 MG Tablet 1 tablet as needed Orally Four times a day Discontinued Budesonide 3 MG Capsule Delayed Release Particles 2 capsules Orally Once a day Discontinued Metoprolol Succinate ER 50 MG Tablet Extended Release 24 Hour TAKE 1 TABLET BY MOUTH EVERY DAY Medication List reviewed and reconciled with the patient * Allergies: N o Known Drug Allergyno[Allergies Verified] Objective: * Vitals: H t: 66, Wt: 190, BMI:30.66, BP: 140/70, HR: 62, Temp: 98.2, Wt-k.18. * P ast Orders: L ab:URINE DIP STICK (Order Date - 12/27/2024) (Collection Date & Time - 12/27/2024) Value Reference Range SG 1.010 1.005 - 1.025 pH 6.0 5.0 - 9.0 NASRIN Negative Negative - NIT Negative Negative - PRO 15 Negative - Trace GLU Negative Negative - KET Negative Negative - UBG 0.2 0.1 - 1.8 TITA Negative 0.2 - 1.3 BLD Negative Negative - * Examination: G eneral Examination: GENERAL APPEARANCE: p leasant, well nourished, well developed, in no acute distress, calm and relaxed, obese, man. HEAD: a traumatic, normocephalic. EYES: e nataliia, perrla, anicteric, conjugate, Pterygium left eye, pterygium right has been removed. EARS: n ormal. NOSE: s eptum intact. [...] organomegaly, no mass, centripital obesity. RECTAL EXAM: , normal tone, no masses palpable, prostate normal, stool guaiac negative. MUSCULOSKELETAL: e xtremities unremarkable, no clubbing, cyanosis or edema, Mild decreased range of motion left shoulder. PERIPHERAL PULSES: n ormal. NEUROLOGIC: a lert and oriented, cranial nerves 2-12 grossly intact, deep tendon reflexes 2+ symmetrical, motor strength normal upper and lower extremities, sensory exam intact. PSYCH: a lert, oriented. Assessment: * Assessment: 1. O besity (BMI 30.0-34.9) - E66.9 (Primary) N otes :His body mass index is 30. We have discussed diet and nutrition. We are made plans to lose weight at a rate of one half of a pound per week until the body mass index is in the normal range. 2 . E ssential hypertension - I10 N otes :His blood pressure is stable. I recommended weight loss and sodium restriction and no changes medication. He will continue aggressive sodium restriction and weight reduction. He may need more medication. He was given an appointment to return to the office in 21 days for reassessment of his hypertension and the medical regimen. 3 . B PH (benign prostatic hyperplasia) - N40.0 N otes :He has been rising from sleep once a night to urinate. We have discussed modifications in lifestyle that he could make to reduce nocturia. 4 . M ixed hyperlipidemia - E78.2 N otes :I have ordered. Comprehensive blood work which will continue a fasting lipid profile. This will be reviewed when available. No changes were made in his regimen today. I recommended aggressive weight loss and a diet low in sodium calories and animal fat. 5 . F ormer smoker - Z87.891 N otes :He is highly motivated not to smoke. We discussed a plan to prevent relapse in times of stress and illness. 6 . C entral pterygium of eye, bilateral - H11.023 N otes :Feet pterygium of the right eye has been removed. In the next few months to left one will be removed as well. Plan: * Treatment: 2. E ssential hypertension L AB: PROFILE, FASTING (COMPREHENSIVE METABOLIC) L AB: PSA, TOTAL L AB: CBC w DIFF L AB: Lipid Panel 3. B PH (benign prostatic hyperplasia) L AB: PROFILE, FASTING (COMPREHENSIVE METABOLIC) L AB: PSA, TOTAL L AB: CBC w DIFF L AB: Lipid Panel 4. M ixed hyperlipidemia L AB: PROFILE, FASTING (COMPREHENSIVE METABOLIC) L AB: PSA, TOTAL L AB: CBC w DIFF L AB: Lipid Panel 5. O thers Continue Metoprolol Succinate ER Tablet Extended Release 24 Hour, 100 MG, 1 tablet, Orally, Once a day; C ontinue Imodium A-D Tablet, 2 MG, 1 tablet as needed, Orally, Four times a day; C ontinue Budesonide Capsule Delayed Release Particles, 3 MG, 2 capsules, Orally, Once a day. * Labs: * L ab: URINE DIP STICK (Collection Date & Time - 12/27/2024) Value Reference Range S G 1.010 1.005 - 1.025 * p H 6.0 5.0 - 9.0 * L EU Negative Negative - * N IT Negative Negative - * P RO 15 Negative - Trace * G MIKE Negative Negative - * K ET Negative Negative - * U BG 0.2 0.1 - 1.8 * B IL Negative 0.2 - 1.3 * B LD Negative Negative - * Procedure Codes: 8 1002 URINE-NO MICRO * Preventive Medicine: Counseling: C are goal [...] tobacco use and urged to quit. 0 12/27/2024 * Follow Up: 6 Months (Reason: OV) * Images: * Sign off status: Completed true * Provider: Jitendra Barbosa MD Date: 0 12/27/2024 Generated for Gladys perez/Michael/Maydasmitting on: 0 05/30/2025 05:25 PM EDT History and Physical Notes * HPI (History of Present Illness) Category Sub-Category Detail Notes Depression Screening PHQ-9 Little inte rest or pleasure in doing things: Not at all Feeling down, depressed, or hopeless: No t at all Trouble falling or staying asleep, or sl eeping too much: Several days Feeling tired or having little energy: S everal days Poor appetite or overeating: Not at all Feeling bad about yourself o r that you are a failure, or have let yourself or your family down: Not at all Trouble concentrating on thi ngs, such as reading the newspaper or watching television: Not at all Moving or speaking so slowly that other people could have noticed; or the opposite, being so fidgety or restless that you have been moving around a lot more than usual: Not at all Thoughts that you would be b shalini off or of hurting yourself in some way: Not at all Total Score: 2 Interpretation: Minimal Depression COVID-19 Screening Questions Have you had any new onset fever, chills, cough, congestion, sore throat, shortness of breath, muscle aches?: No SDOH Questions SDOH Questions In the past year have you been worried about losing your housing?: No In the past year have you or any family members you live with been unable to get any of the following when it was really needed? Check all that apply:: None Examination Category Sub-Category Detail Notes General Examination GENERAL APPEARANCE: pleasant , well nourished, well developed, in no acute distress, calm and relaxed, obese, man HEAD: atraumatic, normocep halic EYES: eomi, perrla, anicte edson, conjugate, Pterygium left eye, pterygium right has been removed EARS: normal NOSE: septum intact NECK/THYROID: no [...] extremities unremark able, no clubbing, cyanosis or edema, Mild decreased range of motion left shoulder LYMPH NODES: no enlarged lymph no wes,spleen normal RECTAL EXAM: , normal tone, no ma sses palpable, prostate normal, stool guaiac negative PSYCH: alert, oriented ORAL CAVITY: normal, unremarkable
--- OUTSIDE RECORDS SUMMARY | 2025-01-03 12:45 | XMS_ITS ---
Author Organization Brian Barbosa III, MD Address [address] [place] [address] Care Team Providers Care Probate Clerk Name Role Phone Brian Barbosa Primary Care Provider REASON FOR VISIT preop Social History Sex Assigned At : Social History Observation Description Sex Assigned At Male Encounters Encounter Location Date Provider Diagnosis Brian Barbosa III, MD [address] [place] [address] [place] [address] 01/03/2025 Brian Barbosa Plan Of Treatment Next Appt Details Provider Name:Brian Barbosa, 08/09/2025 04:00:00 PM, [address] [place] [address] [place], [address], Provider Name:Brian Barbosa, 12/29/2025 03:30:00 PM, [address] [place] [address] [place], [address], Progress Notes * Brian MURPHYDOB:1970 ( 55 yo M)Acc No.[id number]:01/03/2025 Patient: Brian MAO Provider: Jitendra Barbosa MD :1970 A ge:54 Y S ex:Male Date:01/03/2025 [id number] Subjective: * Chief Complaints: * 1 [...] 01/03/2025 Generated for Gladys perez/Michael/Farhatitting on: 0 05/30/2025 05:25 PM EDT
--- OUTSIDE RECORDS SUMMARY | 2025-03-07 06:45 | XMS_ITS ---
Author Organization Brian Barbosa III, MD Address [address] [place] [address] [place] [address] Care Team Providers Care Biology Research Assistant Name Role Phone Brian Barbosa Primary Care [...] Provider Speciality Internal M edicine Referred Provider [facility], Orthopedic Surgeons Referred Provider Specialty Orthopedic S urgery General Notes Neeta Parkinson 03/13/2025 11:58:53 AM > Referral and progress note faxed.Tesha Amber 03/21/2025 11:19:50 AM > Insurance Referral was sent to [facility] Referral Priority Routine Referral Appointment Date [...] Date Provider Diagnosis Brian Barbosa III, MD [address] [place] [address] [place] [address] 03/07/2025 Brian Barbosa Skin lesion L98.9 ; [...] Right Should Pain Questioning Injections, Orthopedic Surgeons [facility] Next Appt Details Follow Up: As Scheduled, Yola son: Annual Exam Provider Name:Brian Barbosa, 08/09/2025 04:00:00 PM, [address] [place] [address] [address], [place], [address], Provider Name:Brian Barbosa, 12/29/2025 03:30:00 PM, [address] [place] [address] [address], [place], [address], Progress Notes * Brian MURPHYDOB:1970 ( 55 yo M)Acc No.[id number]:03/07/2025 Progress Notes Patient: Brian MAO Provider: Jitendra Barbosa MD :1970 A ge:55 Y S ex:Male Date:03/07/2025 [id number] Subjective: * Chief Complaints: * P ainful [...] than 10 years 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 He has been to Ashely for 22 years and they have 2 children. He was born in [place], [place]. * Medications: T akingMetoprolol Succinate ER [...] 03/07/2025 Generated for Gladys perez/Michael/Farhatitting on: 0 05/30/2025 [...] Referred Provider Not radha 03/07/2025 Brian Barbosa [facility], Orthopedic Surgeons Evaluate and Treat Tendinitis in Right shoulder Right Should Pain Questioning Injections
--- OUTSIDE RECORDS SUMMARY | 2025-03-14 10:00 | XMS_ITS ---
Author Organization Brian Barbosa III, MD Address [address] [place] [address] [place] [address] Care Team Providers Care Pediatrician Name Role Phone Brian Barbosa Primary Care Provider REASON FOR VISIT Hypertension, Obesity, Benign prosthetic hypertrophy, Hyperlipidemia Medications Medication SIG (Take, Route, Frequency, Duration) Notes Start Date End Date Status Imodium A-D 2 MG 1 tablet as needed O rally Four times a day Active Metoprolol Succinate ER 100 MG 1 tablet Orally Once a day 11/29/2024 A ctive Budesonide 3 MG 2 capsules Orally On ce a day Active Social History Sex Assigned At : Social History Observation Description Sex Assigned At Male Encounters Encounter Location Date Provider Diagnosis Brian Barbosa III, MD [address] [place] [address] [place] [address] 03/14/2025 Brian Barbosa Essential hypertensi on I10 ; Former smoker Z87.891 ; History of attention deficit disorder Z86.59 ; Simple chronic bronchitis J41.0 and Mixed hyperlipidemia E78.2 Assessments Encounter Date Diagnosis (ICD Code) Assessment Notes Treat ment Notes Treatment Clinical Notes 03/14/2025 Essential hypertension (ICD-10 - I10) His blood pressure is stable. I recommended weight loss and sodium restriction and no changes medication. He will continue aggressive sodium restriction and weight reduction. He may need more medication. He was given an appointment to return to the office in 21 days for reassessment of his hypertension and the medical regimen. 03/14/2025 Former smoker (ICD-10 - Z87.891) He is highly motivated not to smoke. We discussed a plan to prevent relapse in times of stress and illness. 03/14/2025 History of attention deficit disorder (ICD-10 - Z86.59) He has requested that I prescribe a medication for this problem. I told him that this was beyond my scope of training and referred him to mental health benefits through his insurance for evaluation and treatment. 03/14/2025 Simple chronic bronchitis (ICD-10 - J41.0) He will treat himself conservatively with cough suppressants and antipyretics and fluids. 03/14/2025 Mixed hyperlipidemia (ICD-10 - E78.2) I have ordered. Comprehensive blood work which will continue a fasting lipid profile. This will be reviewed when available. No changes were made in his regimen today. I recommended aggressive weight loss and a diet low in sodium calories and animal fat. Plan Of Treatment Medication Medication Name Sig Start Date Stop Date Notes Imodium A-D 2 MG 1 tablet as needed O rally Four times a day Metoprolol Succinate ER 100 MG 1 tablet Orally Once a day 11/29/2024 Budesonide 3 MG 2 capsules Orally Once a day Next Appt Details Follow Up: As Scheduled, Yola son: OV Provider Name:Brian Barbosa, 08/09/2025 04:00:00 PM, [address] [place] [address] [address], [place], [address], Provider Name:Brian Barbosa, 12/29/2025 03:30:00 PM, [address] [place] [address] [address], [place], [address], Progress Notes * Lukas MURPHY:1970 ( 55 yo M)Acc No.[id number]:03/14/2025 Patient: Nereida TEEBrian Ham Provider: Jitendra Barbosa MD :1970 A ge:55 Y S ex:Male Date:03/14/2025 Address:[address], [facility], [id number] Subjective: * Chief Complaints: * H ypertensionObesityBenign prosthetic hypertrophyHyperlipidemia * HPI: * : This telehealth visit took place over 15 minutes with the patient at home and me in my office. He gave consent for billing. The inflamed skin lesion below the left axilla has returned to its normal state. We reviewed the blood work from January 2025 in detail today. He feels healthy and well and continues his efforts at weight loss. Telehealth L ocation of provider rendering services: { ...} [address] [facility] [address] L ocation of patient: leonardo jacinto listed in demographics for today's visit P atient identification confirmed using: OSORIO Love ame T elehealth method: T elephone only. Patient not visible to care provider. C onsent: P atient verbally consented to treatment, Patient verbally consented to billing insurance company, Patient informed of any privacy concerns related to method of visit T otal time spent with patient (mins) 1 5 * ROS: G eneral/Constitutional: pain o nly [...] enies. * Medical History: * Surgical History: * Hospitalization/Major Diagno stic Procedure: * Medications: T akingMetoprolol Succinate ER 100 [...] Particles 2 capsules Orally Once a day Objective: * Vitals: * P ast Orders: L ab:URINE DIP [...] 0.2 - 1.3 BLD Negative Negative - Lab:Complete Blood Count Aut o Diff * Collection Date 01/30/2025 04/17/2022 Collection Time 07:31 AM 09:59 AM Order Date 01/30/2025 04/17/2022 White Blood Count 5.7 (Ref Range: 4.8-10.8 X10*3/uL) 6.2 (Ref Range: 4.8-10.8 X10*3/uL) Red Blood Count 5.16 (Ref Range: 4.60-5.80 X10*6/uL) 5.19 (Ref Range: 4.60-5.80 X10*6/uL) Hemoglobin 14.9 (Ref Range: 14.0-18.0 g/dl) 14.7 (Ref Range: 14.0-18.0 g/dl) Hematocrit 44.5 (Ref Range: 42.0-52.0 %) 45.1 (Ref Range: 42.0-52.0 %) Mean Corpuscular Volume 86.2 (Ref Range: 80.0-98.0 fL) 86.9 (Ref Range: 80.0-98.0 fL) Mean Corpuscular Hemoglobin 28.9 (Ref Range: 27.0-33.0 pg) 28.3 (Ref Range: 27.0-33.0 pg) Mean Corpuscular HGB Conc 33.5 (Ref Range: 31.0-36.0 g/dl) 32.6 (Ref Range: 31.0-36.0 g/dl) Red Cell Distribution Width 12.9 (Ref Range: 11.0-16.0 %) 12.8 (Ref Range: 11.0-16.0 %) Platelet Count 290 (Ref Range: 160-400 X10*3/uL) 279 (Ref Range: 160-400 X10*3/uL) Mean Platelet Volume 8.7 L (Ref Range: 9.4-12.4 fL) 9.5 (Ref Range: 9.4-12.4 fL) Neutrophils Percent Auto 50.5 (Ref Range: 45-73 %) 53.1 (Ref Range: 45-73 %) Imm Gran Pct Auto 0.2 (Ref Range: 0.0-0.4 %) 0.2 (Ref Range: 0.0-0.4 %) Lymphocytes Percent Auto 35.7 (Ref Range: 20-40 %) 34.8 (Ref Range: 20-40 %) Monocytes Percent Auto 10.5 (Ref Range: 2-11 %) 10.1 (Ref Range: 2-11 %) Eosinophils Percent Auto 2.6 (Ref Range: 0-4 %) 1.3 (Ref Range: 0-4 %) Basophils Percent Auto 0.5 (Ref Range: 0-2 %) 0.5 (Ref Range: 0-2 %) NRBC Pct Auto 0.0 (Ref Range: 0.0-0.2 /100WBC) 0.0 (Ref Range: 0.0-0.2 /100WBC) Neutrophils Absolute Auto 2.9 (Ref Range: 2.0-8.3 x10*3/uL) 3.3 (Ref Range: 2.0-8.3 x10*3/uL) Imm Gran Abs Auto 0.01 (Ref Range: 0.00-0.03 X10*3/uL) 0.01 (Ref Range: 0.00-0.03 X10*3/uL) Lymphocytes Absolute Auto 2.0 (Ref Range: 1.2-4.9 X10*3/uL) 2.1 (Ref Range: 1.2-4.9 X10*3/uL) Monocytes Absolute Auto 0.6 (Ref Range: 0.1-1.2 X10*3/uL) 0.6 (Ref Range: 0.1-1.2 X10*3/uL) Eosinophils Absolute Auto 0.2 (Ref Range: 0.0-0.4 X10*3/uL) 0.1 (Ref Range: 0.0-0.4 X10*3/uL) Basophils Absolute Auto 0.0 (Ref Range: 0.0-0.2 X10*3/uL) 0.0 (Ref Range: 0.0-0.2 X10*3/uL) NRBC Abs Auto 0.000 (Ref Range: 0.0-0.012 X10*3/uL) 0.000 (Ref Range: 0.0-0.012 X10*3/uL) ???Lab:[facility]prehensive [facility]. Panel Fast (Order Date - 01/30/2025) (Collection Date & Time - 01/30/2025 07:31 AM)?ValueReference Range?Eoornv434393- 145 - mmol/L?Bilirubin Total0.70.0-1.0 - mg/dL?Aspartate Amino Wiqrguyddit739-14 - U/L?Alanine Mpdbxjdbpgtgjehm566-12 - U/L?Total Protein7.26.5-8.0 - g/dL?Albumin Level4.43.5-5.0 - g/dL?Alkaline Khixzsvpawl1585-745 - U/L?Potassium4.73.3-5.1 - mmol/L?Ctjmwwbh522 96-108 - mmol/L?Carbon Nicjxym5540-30 - mmol/L?Anion Szi2313-82 - ?Blood Urea Tzkaqvqv42O8-49 - mg/dL?Creatinine0.980.5-1.4 - mg/dL ?Estimated Glomerular Filt Rate> 60-?Glucose Svufgqv532X85-61 - mg/dL?Calcium9.58.4-10.2 - mg/dL * Lab:Lipid Panel * Collection Date 01/30/2025 06/23/2022 04/17/2022 Collection Time 07:31 AM 06:22 AM 09:59 AM Order Date 01/30/2025 06/23/2022 04/16/2022 Triglycerides 109 (Ref Range: <150 mg/dL) 135 (Ref Range: mg/dL) 76 (Ref Range: mg/dL) Cholesterol 224 H (Ref Range: <200 mg/dL) 222 (Ref Range: mg/dL) 293 (Ref Range: mg/dL) LDL Cholesterol Calculated 159 H (Ref Range: <100 mg/dL) 138 (Ref Range: mg/dl) 224 (Ref Range: mg/dl) HDL Cholesterol 44 (Ref Range: >40 mg/dL) 57 (Ref Range: mg/dL) 54 (Ref Range: mg/dL) * Lab:Prostate Specific Antige n * Collection Date 01/30/2025 04/17/2022 Collection Time 07:31 AM 09:59 AM Order Date 01/30/2025 04/17/2022 Prostate Specific Antigen 0.76 (Ref Range: <0.05-4.0 ng/mL) 0.55 (Ref Range: <0.05-4.0 ng/mL) Assessment: * Assessment: 1. E ssential hypertension [...] insurance for evaluation and treatment. 4 . S imple chronic bronchitis - J41.0 N otes :He will treat himself conservatively with cough suppressants and antipyretics and fluids. 5 . M ixed hyperlipidemia - E78.2 N otes :I have ordered. Comprehensive blood work which will continue a fasting lipid profile. This will be reviewed when available. No changes were made in his regimen today. I recommended aggressive weight loss and a diet low in sodium calories and animal fat. Plan: * Treatment: * Procedure Codes: 9 8012 SYNCH AUDIO-ONLY EST SF 10 * Preventive Medicine: Counseling: C are goal follow-up plan: Counseling for abnormal BMI given Y es Above Normal BMI Follow-up D ietary management education, guidance, and counseling S moking/Tobacco Use Patient counseled on the dangers of tobacco use and urged to quit. 0 03/14/2025 * Follow Up: A s Scheduled (Reason: OV) * Images: * Sign off status: Completed true * Provider: Jitendra Barbosa MD Date: 0 03/14/2025 Generated for Gladys perez/Michael/eTransmitting on: 0 05/30/2025 05:26 PM EDT History and Physical Notes * HPI (History of Present Illness) Category Sub-Category Detail Notes Telehealth Location of [facility] rendering services:: {...} [address] [facility] [address] Location of patient:: address listed in demographics for today's visit Patient identification confirmed using:: Name, Telehealth method:: Telephone only. Gail ent not visible to care provider. Consent:: Patient verbally c onsented to treatment, Patient verbally consented to billing insurance company, Patient informed of any privacy concerns related to method of visit Total time spent with patient (mins): 15
--- NOTE | 2025-05-30 15:09 | A.OFFVIS_ITS ---
Vital Signs 05/30/25 15:13 Height 5 ft 6 in Weight 185 lb BMI 29.9 Intake Visit Reasons: Right shoulder pain and weakness Intake Note: Brian is a 55 year old male right hand dominant who presents with complaints of progressively worsening right shoulder pain and weakness. The patient describes his pain as sharp in nature. The pain does radiate down his arm at times. He also reports weakness in his right shoulder. He states that he recently tried 'power lifting' had his home gym. He had difficulty lifting because of his pain and weakness. He has stopped lifting weights because of his symptoms. He has tried Tylenol and anti-inflammatory medicines which gave him minimal relief. He did have a cortisone injection given into his left elbow in the past which gave him temporary relief. 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 Physical Exam Vital Signs: BMI result Body Mass Index 29.9 Const Other: Well-nourished well-developed very friendly male awake alert and oriented x3 in no acute distress Extrem Other: Bilateral upper extremity examination shows good capillary refill, no skin lesions noted, normal sensation light touch Right shoulder examination shows almost full range of motion when compared to his left shoulder, 4+ out of 5 strength with supraspinatus testing, positive impingement signs, tenderness over his acromioclavicular joint, no instability Results Reviewed Results Reviewed: X-rays of the patient's right shoulder show moderate to severe acromioclavicular joint narrowing, a type 3 acromion, no acute bony abnormalities Assessment & Plan Assessment & Plan (1) Rotator cuff insufficiency of right shoulder: Code(s): M25.311 - Other instability, right shoulder Category: Medical Plan Mr. Murphy presents with progressively worsening right shoulder pain and weakness due to impingement syndrome and possible rotator cuff tearing. Thus, I will send the patient for an MRI of his right shoulder for further evaluation. I will see him back once the MRI is completed to discuss the findings and treatment options. Feel free to call me at any time should questions regarding his orthopedic management arise. I spent 20 minutes in reviewing the patient's records and imaging studies, seeing the patient and documenting in the medical record. Orders: Orders XR shoulder RT min 2V Today M25.511 - Pain in right shoulder MR shoulder RT wo con 05/31/25 M25.311 - Other instability, right shoulder Coding Level of Care Code New Pt Level 3 (14168) Complex EM visit Add On G2211 Diagnoses Rotator cuff insufficiency of right shoulder M25.311
[2025-05-30 15:13] VITALS: BMI 29.9
--- OUTSIDE RECORDS SUMMARY | 2025-05-30 17:25 | XMS_ITS | Patient Health Record ---
Author Organization [facility] Address [address] [place] [address] Care Team Providers Care Accounts Payable Coordinator Name Role Phone Rich Barbosa MD Primary Care Provider Unavailab Rich Lord Unavailable [phone] Allergies No Known Allergies Reason For Referral Referring Provider First Name Rich Referring Provider Last Name Familia Referring Provider Speciality Oncology Referred Organization [facility] Referred Provider Rich Beck Referred Address [address],[place], [place],[address],[place] Referred Provider Specialty Gastroentero logy General Notes [...] Screening for malignant neoplasm of colon done (420470516184726) Encounter for screening for malignant neoplasm of colon (Z12.11) Active confirmed Problem Diarrhea (23203319) Diarrhea (R19.7) Active confirmed Problem History of polyp of colon (situation) (285512405) Personal history of colonic polyps (Z86.010) Active confirmed Problem Preprocedural examination done (048356909007974) Preprocedural examination (Z01.818) Active confirmed Problem Lymphocytic colitis (9070379104) Lymphocytic colitis (K52.89) Active confirmed Problem Diverticulosis of colon (484823512) Diverticulosis of colon (K57.30) Active confirmed Vital Signs Blood pressure diastolic 00 mm Hg 08/09/2024 Height 66 in 08/09/2024 Blood pressure systolic 00 mm Hg 08/09/2024 Weight 186 lbs 08/09/2024 BMI 30.02 kg/m2 08/09/2024 Encounters Encounter Location Date Provider Diagnosis [facility] [address] [place] [phone] 08/09/2024 Rich Beck Lymphocytic colitis K52.89 ; Encounter for screening for malignant neoplasm of colon Z12.11 and Personal history of colonic polyps Z86.010 [facility] [address] [place] [address] 06/27/2024 Rich Beck Assessments Encounter Date Diagnosis [...] him a prescription to be able to flower picker some budesonide to have handy in [...] him a prescription to be able to flower picker some budesonide to have handy in [...] of colonic polyps (ICD-10 - Z86.010) Overall, Rcih appears quite well. His lymphocytic colitis has [...] him a prescription to be able to flower picker some budesonide to have handy in [...] Provider Name:Rich Beck , 08/23/2025 04:20:00 PM, [address] [place] [address], [address], [place], [address], Insurance Providers Payer Name Payer Address Payer Phone Subscriber Number Group Number Insured Name Patient Relationship to Insured Coverage Start Date Coverage End Date O [employer] [address] [place] [address] [id number] RICH BENSON Self - patient is the insured Medical (General) History Medical History History ICD Code Denies [place],DM,CVA,Lung disease,renal dise ase Hypertension Screening colonoscopy in [...]
--- OUTSIDE RECORDS SUMMARY | 2025-05-30 17:27 | XMS_ITS | Patient Health Record ---
Author Organization Brian Barbosa III, MD Address [address] [address] Care Team Providers Care Electrode Turner And Finisher Name Role Phone Brian Barbosa Primary Care [...] 0.2 - 1.3 BLD Negative Negative - Complete Blood Count Auto Di ff Reviewed date:03/14/2025 01:09:28 PM Interpretation: Performing Lab:[facility], [address] [place] [phone] Notes/Report: White Blood Count 5.7 4.8-10.8 X10*3/uL Red Blood Count 5.16 4.60-5.80 X10*6/uL Hemoglobin 14.9 14.0-18.0 g/dl Hematocrit 44.5 42.0-52.0 % Mean Corpuscular Volume 86.2 80.0-98.0 fL Mean Corpuscular Hemoglobin 28.9 27.0-33.0 pg Mean Corpuscular HGB Conc 33.5 31.0-36.0 g/dl Red Cell Distribution Width 12.9 11.0-16.0 % Platelet Count 290 160-400 X10*3/uL Mean Platelet Volume 8.7 9.4-12.4 fL Neutrophils Percent Auto 50.5 45-73 % Imm Gran Pct Auto 0.2 0.0-0.4 % Lymphocytes Percent Auto 35.7 20-40 % Monocytes Percent Auto 10.5 2-11 % Eosinophils Percent Auto 2.6 0-4 % Basophils Percent Auto 0.5 0-2 % NRBC Pct Auto 0.0 0.0-0.2 /100WBC Neutrophils Absolute Auto 2.9 2.0-8.3 x10*3/u L Imm Gran Abs Auto 0.01 0.00-0.03 X10*3/uL Lymphocytes Absolute Auto 2.0 1.2-4.9 X10*3/u L Monocytes Absolute Auto 0.6 0.1-1.2 X10*3/uL Eosinophils Absolute Auto 0.2 0.0-0.4 X10*3/u L Basophils Absolute Auto 0.0 0.0-0.2 X10*3/uL NRBC Abs Auto 0.000 0.0-0.012 X10*3/uL Comprehensive [place]. Panel Fa st Reviewed date:03/14/2025 01:09:28 PM Interpretation: Performing Lab:[facility], [address] [place] [phone] Notes/Report: Sodium 142 135-145 mmol/L Potassium 4.7 3.3-5.1 mmol/L Chloride 105 96-108 mmol/L Carbon Dioxide 29 22-29 mmol/L Anion Gap 13 12-20 Blood Urea Nitrogen 22 9-16 mg/dL Creatinine 0.98 0.5-1.4 mg/dL Estimated Glomerular Filt Rate > 60 Chronic Kidney Disease: Estimated GFR < 60 mL/min/1.73m2 Severe Kidney Disease: Estimated GFR < 15 mL/min/1.73m2 Glucose Fasting 108 60-99 mg/dL A fasting glucose from 100-125 mg/dl is considered impaired (pre-diabetes). Calcium 9.5 8.4-10.2 mg/dL Bilirubin Total 0.7 0.0-1.0 mg/dL Aspartate Amino Transferase 33 5-37 U/L Alanine Aminotransferase 30 0-40 U/L Total Protein 7.2 6.5-8.0 g/dL Albumin Level 4.4 3.5-5.0 g/dL Alkaline Phosphatase 72 39-117 U/L Lipid Panel Reviewed date:03/14/2025 01:09:28 PM Interpretation: Performing Lab:[facility], [address] [place] [phone] Notes/Report: Triglycerides 109 <150 mg/dL Desirable Triglyceride: less than 150 mg/dL Borderline High Triglyceride 150-199 mg/dL High Triglyceride: 200-499 mg/dL Very High Triglyceride: greater than or equal to 5OO mg/dL Cholesterol 224 <200 mg/dL Desirable Cholesterol: less than 200 mg/dL Borderline High Cholesterol: 200-239 mg/dL High Cholesterol: greater than 239 mg/dL LDL Cholesterol Calculated 159 <100 mg/dL Desirable LDL: less than 100 mg/dL Near Optimal/Above Optimal LDL: 110-129 mg/dL Borderline High LDL: 130-159 mg/dL High LDL: 160-189 mg/dL Very High LDL: greater than or equal to 190 mg/dL HDL Cholesterol 44 >40 mg/dL Desirable HDL: greater than 40 mg/dL Note: This HDL assay may give artificially low results in patients with liver disease. Prostate Specific Antigen Reviewed date:03/14/2025 01:09:28 PM Interpretation: Performing Lab:[facility], [address] [place] [phone] Notes/Report: Prostate Specific Antigen 0.76 <0.05-4.0 ng/mL PSA methodology: Delgado Alinity i Chemiluminescent Microparticle Immunoassay (CMIA) Reason For Referral Reason Evaluate and Treat Tendinitis in Right shoulder Right Should Pain Questioning Injections Diagnosis 1 Tendinitis (M77.9) Diagnosis 2 Right shoulder pain (M25.511) Referral Organization Brian Barbosa III, MD Referring Provider First Name Brian Referring Provider Last Name Familia Referring Provider Speciality Internal M edicine Referred Provider [facility], Orthopedic Surgeons Referred Provider [facility]ty [facility] General Notes Tesha Neeta 03/13/2025 11:58:53 AM > Referral and progress note faxed.Tesha Neeta 03/21/2025 11:19:50 AM > Insurance Referral was sent to [facility] Ortho Referral Priority Routine Referral Appointment Date 05/29/2025 Medications Medication SIG (Take, Route, Frequency, Duration) Notes Start Date End Date Status Imodium A-D 2 MG 1 tablet as needed O rally Four times a day Active Metoprolol Succinate ER 100 MG 1 tablet Orally Once a day 11/29/2024 A ctive Budesonide 3 MG 2 capsules Orally On ce a day Active Immunizations Vaccine Route Administration Date Status Comme nts COVID PFIZER Unknown 12/05/2020 Administered COVID PFIZER Unknown 12/26/2020 [...] Problem Status W/U Status Risk Notes Problem 7052246 Former smoker (Z87.891) Active confirmed He is highly motivated not to smoke. We discussed a plan to prevent relapse in times of stress and illness. Problem 050206561 Overweight (E66.3) Active confirmed He has lost 10 pounds since his last visit. His vital signs are stable. I recommended continued weight loss. Into his body mass index is in the normal range through regular exercise and a diet restricted in fact calories and sodium. Problem 167012073780598 Obesity (BMI 30.0-34.9) (E66.9) Active confirmed His body mass index is 30. We have discussed diet and nutrition. We are made plans to lose weight at a rate of one half of a pound per week until the body mass index is in the normal range. Problem 673818683 Mixed hyperlipidemia (E78.2) Active confirmed I have ordered. Comprehensive blood work which will continue a fasting lipid profile. This will be reviewed when available. No changes were made in his regimen today. I recommended aggressive weight loss and a diet low in sodium calories and animal fat. Problem 20627235 Simple chronic bronchitis (J41.0) Active confirmed He will treat himself conservatively with cough suppressants and antipyretics and fluids. Problem Benign prostatic hyperplasia (938200511) BPH (benign prostatic hyperplasia) (N40.0) Active confirmed He has been rising from sleep once a night to urinate. We have discussed modifications in lifestyle that he could make to reduce nocturia. Problem 42582234 Essential hypertension (I10) Active confirmed His blood pressure is stable. I recommended weight loss and sodium restriction and no changes medication. He will continue aggressive sodium restriction and weight reduction. He may need more medication. He was given an appointment to return to the office in 21 days for reassessment of his hypertension and the medical regimen. Problem Diarrhea (75621685) Diarrhea (R19.7) Active confirmed His GI panel is negative and his blood work is unremarkable. He was referred to gastroenterology to rule out an inflammatory bowel disorder. Problem 57146396 Colitis (K52.9) Active confirmed The exact type of colitis is unavailable to me at this time except that it is microscopic. He has responded nicely to the medication given to him by the gastroenterologis t, which will be continued. Problem 032516637 History of attention deficit disorder (Z86.59) Active confirmed He has requeste d that I prescribe a medication for this problem. I told him that this was beyond my scope of training and referred him to mental health benefits through his insurance for evaluation and treatment. Vital Signs Heart Rate 65 /min 03/07/2025 Temperature 97.5 degrees Fahrenheit 03/07/2025 Blood pressure diastolic 75 mm Hg 03/07/2025 Height 66 in 03/07/2025 Blood pressure systolic 140 mm Hg 03/07/2025 Weight 186 lbs 03/07/2025 BMI 30.02 kg/m2 03/07/2025 Encounters Encounter Location Date Provider Diagnosis Brian Barbosa III, MD [address] [place] [address] [place] [address] 11/09/2024 Brian Barbosa Central pterygium of eye, bilateral H11.023 ; Former smoker Z87.891 ; Obesity (BMI 30.0-34.9) E66.9 ; History of attention deficit disorder Z86.59 and Essential hypertension I10 Brian Barbosa III, MD [address] [place] [address] [place] [address] 12/06/2024 Brian Barbosa Former smoker Z87.89 1 ; Essential hypertension I10 ; History of attention deficit disorder Z86.59 and Obesity (BMI 30.0-34.9) E66.9 Brian Barbosa III, MD [address] [place] [address] [place] [address] 12/27/2024 Brian Barbosa Essential hypertensi on I10 ; Obesity (BMI 30.0-34.9) E66.9 ; BPH (benign prostatic hyperplasia) N40.0 ; Mixed hyperlipidemia E78.2 ; Former smoker Z87.891 and Central pterygium of eye, bilateral H11.023 Brian Barbosa III, MD [address] [place] [address] [place] [address] 03/07/2025 Brian Barbosa Skin lesion L98.9 ; Essential hypertension I10 ; Former smoker Z87.891 and Obesity (BMI 30.0-34.9) E66.9 Brian Barbosa III, MD [address] [place] [address] [place] [address] 03/14/2025 Brian Barbosa Essential hypertensi on I10 ; Former smoker Z87.891 ; History of attention deficit disorder Z86.59 ; Simple chronic bronchitis J41.0 and Mixed hyperlipidemia E78.2 Brian Barbosa III, MD [address] [place] [address] [place] [address] 11/29/2024 Brian Barbosa III, MD [address] [place] [address] [place] [address] 11/29/2024 Brian Barbosa Assessments Encounter Date Diagnosis (ICD Code) Assessment Notes T reatment Notes Treatment Clinical Notes 11/09/2024 Former smoker (ICD-10 - Z87.891) He [...] his hypertension and the medical regimen. 03/07/2025 Skin lesion (ICD-10 - L98.9) He [...] in times of stress and illness. 03/14/2025 Essential hypertension (ICD-10 - I10) His blood pressure is stable. I recommended weight loss and sodium restriction and no changes medication. He will continue aggressive sodium restriction and weight reduction. He may need more medication. He was given an appointment to return to the office in 21 days for reassessment of his hypertension and the medical regimen. 11/09/2024 Obesity (BMI 30.0-34.9) (ICD-10 - E66.9) [...] that he could make to reduce nocturia. 03/07/2025 Former smoker (ICD-10 - Z87.891) He [...] his insurance for evaluation and treatment. 11/09/2024 History of attention deficit disorder (ICD-10 [...] low in sodium calories and animal fat. 03/07/2025 Obesity (BMI 30.0-34.9) (ICD-10 - E66.9) His body mass index is 30. We have discussed diet and nutrition. We are made plans to lose weight at a rate of one half of a pound per week until the body mass index is in the normal range. 03/14/2025 Simple chronic bronchitis (ICD-10 - J41.0) He will treat himself conservatively with cough suppressants and antipyretics and fluids. 11/09/2024 Essential hypertension (ICD-10 - I10) His [...] in times of stress and illness. 03/14/2025 Mixed hyperlipidemia (ICD-10 - E78.2) I have ordered. Comprehensive blood work which will continue a fasting lipid profile. This will be reviewed when available. No changes were made in his regimen today. I recommended aggressive weight loss and a diet low in sodium calories and animal fat. 12/27/2024 Central pterygium of eye, bilateral (ICD-10 - H11.023) Feet pterygium of the right eye has been removed. In the next few months to left one will be removed as well. Plan Of Treatment Pending Test Test Name Order Date PROFILE, FASTING (COMPREHENSIVE METABOLI C) 12/27/2024 PROFILE, FASTING (COMPREHENSIVE METABOLI C) 04/16/2022 PROFILE, FASTING (COMPREHENSIVE METABOLI C) 12/22/2019 PROFILE, FASTING (COMPREHENSIVE METABOLI C) 04/26/2019 PROFILE, RANDOM (COMPREHENSIVE METABOLIC ) 06/25/2022 LIPID PANEL 12/22/2019 LIPID PANEL 04/26/2019 LIPID PANEL 06/25/2022 PSA, TOTAL 04/26/2019 PSA, TOTAL 12/27/2024 PSA, TOTAL 04/16/2022 CBC w DIFF 12/22/2019 CBC w DIFF 04/26/2019 CBC w DIFF 12/27/2024 CBC w DIFF 06/25/2022 CBC w DIFF 04/16/2022 XR CHEST 2 VIEW PA & LAT 12/05/2019 XR HIP LT 07/14/2018 XR LUMBAR SPINE 4+ VIEWS 07/14/2018 XR PELVIS 07/14/2018 Lipid Panel 04/22/2022 Lipid Panel 12/27/2024 Giardia Ag Stool EIA 04/16/2022 Next Appt Details Provider Name:Brian Barbosa, 08/09/2025 04:00:00 PM, [address] [place] [address] [address], [place], [address], Provider Name:Brian Barbosa, 12/29/2025 03:30:00 PM, [address] [place] [address] [address], [place], [address], Insurance Providers Payer Name Payer Address Payer Phone Subscriber Number Group Number Insured Name Patient Relationship to Insured Coverage Start Date Coverage End Date [facility] [address] [place], [place] [phone] [id number] Brian Murphy Self - patient is the insured Medical (General) History Medical History History ICD Code attention deficit disorder hypertension pterygia overweight former smoker chronic diarrhea March 2022 Surgical History Surgery Date(Month/Year) Pterygium Removed, Right eye 10/2024 colonoscopy 2019 vasectomy 2002
== END 2025-05-30 15:25 | disposition home or self-care (01) ==
LOC: HO.HOS 15:01
PROVIDERS: PCP Internal Medicine Medical Oncology; Visit Provider Orthopaedic Surgery
DX: M25.311 Other instability, right shoulder (principal)
CPT/HCPCS: 99203

== ENCOUNTER → 2025-05-30 15:02 | Outpatient (BNV) | payer BC, SELFPAY | PROVIDERS: Visit Provider Radiology Diagnostic Radiology | DX: M25.511 Pain in right shoulder (principal) | CPT/HCPCS: 73030 ==